=== PATIENT | female | born 1940 | race Caucasian/White ===

== ENCOUNTER 2016-09-18 20:58 | Emergency (ER) | payer MEDICARE, SELFPAY ==
[2016-09-18] MEDS ORDERED: Reglan 10 MG/2 ML IV ONE (21:01)
[2016-09-18] MEDS ORDERED: BENADRYL 50 MG/ML IV ONE (21:01)
[2016-09-18] MEDS ORDERED: Hydromorphone 1 mg/ml Ampule IV ONE ×2 (21:11→22:23)
[2016-09-18] MEDS ORDERED: Sodium Chloride 0.9% 1000 ML 1,000 ML IV SCH (21:15)
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
[2016-09-18 21:20] LABS: Lactic Acid 1.4 (0.4-2.0); VBG BASE EXCESS 3.4 (-2.0-2.0); VBG CARBOXYHEMOGLOBIN 1.3 % T HGB (0.0-6.9); VBG HCO3- 31.2 meq/L (22-28); VBG HEMOGLOBIN 12.6; VBG O2 SATURATION 44.3 (95-100); VBG POTASSIUM 3.9 (3.5-5.1); VBG pH 7.31 (7.32-7.42)
[2016-09-18 21:22] LABS: BASOPHIL % 0.7 % (0.0-0.4); Eosinophil % 1.8 % (0.00-5.0); Granulocytes % 47.2 % (36.0-66.0); Lymphocytes % 38.8 % (24.0-44.0); Mean Cell Volume 92.1 fl (78-100); Mean Corpuscular Hemoglobin 29.9 pg (26-32); Mean Platelet Volume 9.1 fl (6-9.5); Monocytes % 11.5 % (0.0-12.0); Platelet Count 220 K/mm3 (150-450); Red Blood Count 4.31 M/mm3 (4.1-5.4); Red Cell Distribution Width 14.2 % (11.5-14.0); White Blood Count 4.4 K/mm3 (4.0-10.5)
[2016-09-18] MEDS ORDERED: Reglan 10 MG/2 ML ONE (21:24)
[2016-09-18] MEDS ORDERED: Hydromorphone 1 mg/ml Ampule ONE ×2 (21:25→22:25)
[2016-09-18] MEDS ORDERED: Sodium Chloride 0.9% 1000 ML 1,000 ML ONE (21:25)
[2016-09-18] MEDS ORDERED: BENADRYL 50 MG/ML ONE (21:25)
[2016-09-18 21:44] LABS: ALBUMIN 3.3 g/dL (3.4-5.0); ALKALINE PHOSPHATASE 64 U/L (46-116); ANION GAP 12.6 MEQ/L (5-15); BILIRUBIN,TOTAL 0.1 mg/dL (0.2-1.0); BLOOD UREA NITROGEN 19 mg/dL (9-20); CHLORIDE 104 mEq/L (98-107); Carbon Dioxide 28.5 mEq/L (21-32); Glucose 112 MG/DL (70-110); Potassium 3.6 mEq/L (3.5-5.1); SGOT/AST 16 U/L (15-37); SGPT/ALT 9 U/L (12-78); SODIUM 142 mEq/L (136-145); Total Protein 7.8 gm/dL (6.4-8.2)
[2016-09-18 22:03] LABS: Erythrocyte Sedimentation Rate 43 mm/hr (0-20)
[2016-09-18] MEDS ORDERED: XYLOCAINE 1% HCL 20 ML MDV IJ ONE (22:23)
[2016-09-18] MEDS ORDERED: XYLOCAINE 1% HCL 20 ML MDV ONE (22:25)
[2016-09-18] MEDS ORDERED: Celestone Soluspan 6MG/ML IM ONE (23:36)
[2016-09-18] MEDS ORDERED: Celestone Soluspan 6MG/ML ONE (23:39)
[2016-09-19 00:23] VITALS: BP 128/68; PULSE 60; O2SAT 95
--- NOTE | 2016-09-19 06:46 | XRAY ---
Indication: Right-sided headache radiating to right side of body. No known injury. Multiple contiguous axial images obtained through the head without contrast. Comparison: April 09, 2012. Again age-appropriate global atrophy and minimal periventricular degenerative micro-ischemia. New finding for remote appearing lacunar infarct in the left thalamus. No acute intracranial hemorrhage, abnormal extra-axial fluid collection, or mass effect. Fourth ventricle is midline without hydrocephalus. Bony calvarium intact. Visualized paranasal sinuses and mastoid air cells are pneumatized and clear. Impression: Nonacute senile brain. New finding for remote left thalamic lacunar infarct. Comment: Preliminary interpretation was made by [facility]. No critical discrepancy. CTDI 66.59
--- NOTE | 2016-09-19 06:50 | XRAY ---
Indication: Right-sided headache radiating to right side of body. No known injury. Multiple contiguous axial images obtained through the cervical spine. Sagittal and coronal reformatted images obtained. Comparison: None. Axial images negative for acute fracture, suspicious bony lesions, or spinal canal stenosis. Mild atlantoaxial degenerative changes. C3-C5 and C7-T1 anterior endplate spurring. At the C3-C4 and C5-C6 levels, there is broadbase disc bulge. Sagittal and coronal reformatted images demonstrates normal alignment. Disc spaces maintained. No acute compression fracture, subluxation, or jump facet. Normal-appearing craniocervical junction. Visualized noncontrasted soft tissues including base of the brain and lung apices are unremarkable. Impression: No acute fracture/subluxation. Incidental multilevel degenerative changes that can be better evaluated with MRI if clinically warranted. Comment: Preliminary interpretation was made by [facility]. No critical discrepancy. CTDI 120.49
== END 2016-09-19 00:25 | disposition home or self-care (01) ==
LOC: ED 20:58
DX: G44.59 Other complicated headache syndrome (principal); M54.81 Occipital neuralgia; M50.20 Other cervical disc displacement, unspecified cervical region; I10 Essential (primary) hypertension; Z86.73 Personal history of transient ischemic attack (TIA), and cerebral infarction without residual deficits; J44.9 Chronic obstructive pulmonary disease, unspecified; Z79.899 Other long term (current) drug therapy
CPT/HCPCS: 36000; 36415; 70450; 72125; 80053; 82805; 83605; 85025; 85652; 93041; 96360; 96361; 96372; 96374; 96375; 96376; 99284; J0702; J1170; J1200

== ENCOUNTER 2017-01-04 12:07 | Emergency (ER) | payer MEDICARE, SELFPAY ==
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
[2017-01-04 12:45] LABS: COMPLETE URINE MICROSCOPIC? YES; Collection Type CLEAN CATCH
[2017-01-04 12:54] LABS: BASOPHIL % 0.5 % (0.0-0.4); Eosinophil % 1.7 % (0.00-5.0); Granulocytes % 53.9 % (36.0-66.0); Lymphocytes % 29.4 % (24.0-44.0); Mean Cell Volume 95.1 fl (78-100); Mean Corpuscular Hemoglobin 30.2 pg (26-32); Mean Platelet Volume 8.8 fl (6-9.5); Monocytes % 14.5 % (0.0-12.0); Platelet Count 195 K/mm3 (150-450); Red Blood Count 3.67 M/mm3 (4.1-5.4); Red Cell Distribution Width 13.6 % (11.5-14.0); White Blood Count 4.2 K/mm3 (4.0-10.5)
[2017-01-04 13:10] LABS: ADD URINE CULTURE? YES (NO); Bacteria MODERATE /HPF (NEGATIVE); Epithelial Cells MODERATE /HPF (FEW); WBC 50-100 /HPF (0-5)
[2017-01-04 13:53] LABS: ALBUMIN 3.1 g/dL (3.4-5.0); BILIRUBIN,TOTAL 0.3 mg/dL (0.2-1.0); Potassium 3.6 mEq/L (3.5-5.1); Total Protein 7.1 gm/dL (6.4-8.2)
[2017-01-04 14:25] VITALS: BP 155/82; PULSE 65; O2SAT 96
== END 2017-01-04 14:23 | disposition home or self-care (01) ==
LOC: ED 12:07
DX: N39.0 Urinary tract infection, site not specified (principal); R41.0 Disorientation, unspecified; Z87.440 Personal history of urinary (tract) infections
CPT/HCPCS: 36415; 80053; 81000; 85025; 87077; 87086; 87186; 99283; 99284

== ENCOUNTER 2017-02-18 14:36 | Emergency (ER) | payer MEDICARE, SELFPAY ==
[2017-02-18] MEDS ORDERED: TORAdol 30 mg Injection IM ONE (15:08)
[2017-02-18 15:09] VITALS: O2SAT 96
[2017-02-18] MEDS ORDERED: TORAdol 30 mg Injection ONE (15:12)
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
[2017-02-18 15:59] VITALS: BP 130/82; PULSE 70
--- NOTE | 2017-02-18 16:09 | XRAY ---
Indication: Pain. No known injury. Comparison: None 2 views of the right hip intact with a few pelvic phleboliths and minimal spurring of the greater trochanter. No other bony, articular, or soft tissue abnormalities.
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
== END 2017-02-18 16:45 | disposition home or self-care (01) ==
LOC: ED 14:36
DX: M79.604 Pain in right leg (principal); G89.29 Other chronic pain
CPT/HCPCS: 73502; 93971; 96372; 99284; J1885

== ENCOUNTER 2017-03-05 18:50 | Emergency (ER) | payer MEDICARE, SELFPAY ==
[2017-03-05] MEDS ORDERED: Sodium Chloride 0.9% 1000 ML 1,000 ML IV STA (19:16)
[2017-03-05] MEDS ORDERED: Sodium Chloride 0.9% 1000 ML 1,000 ML ONE (19:20)
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
[2017-03-05 19:34] LABS: BASOPHIL % 0.3 % (0.0-0.4); Eosinophil % 0.9 % (0.00-5.0); Granulocytes % 59.9 % (36.0-66.0); Lymphocytes % 25.9 % (24.0-44.0); Mean Cell Volume 90.4 fl (78-100); Mean Corpuscular Hemoglobin 29.4 pg (26-32); Mean Platelet Volume 8.7 fl (6-9.5); Platelet Count 255 K/mm3 (150-450); Red Blood Count 4.07 M/mm3 (4.1-5.4); Red Cell Distribution Width 13.5 % (11.5-14.0); White Blood Count 6.4 K/mm3 (4.0-10.5)
[2017-03-05 19:50] LABS: ALBUMIN 3.4 g/dL (3.4-5.0); ALKALINE PHOSPHATASE 48 U/L (46-116); ANION GAP 9.4 MEQ/L (5-15); BLOOD UREA NITROGEN 18 mg/dL (9-20); CHLORIDE 98 mEq/L (98-107); Carbon Dioxide 29.1 mEq/L (21-32); Glucose 113 MG/DL (70-110); Potassium 3.8 mEq/L (3.5-5.1); SGOT/AST 27 U/L (15-37); SGPT/ALT 30 U/L (12-78); SODIUM 133 mEq/L (136-145); Total Protein 7.7 gm/dL (6.4-8.2)
[2017-03-05 20:01] LABS: ADD URINE CULTURE? YES (NO); Bacteria MANY /HPF (NEGATIVE); Bilirubin NEGATIVE (NEGATIVE); Blood 50 Ery/ul (0-5); COMPLETE URINE MICROSCOPIC? YES; Collection Type VOID; Epithelial Cells MODERATE /HPF (FEW); Glucose NEGATIVE (NEGATIVE); Leukocyte Esterase 1+ (NEGATIVE); Mucus SLIGHT /HPF (NEGATIVE)
[2017-03-05] MEDS ORDERED: ROCEPHIN 1 Gm-D5w 50 ml Bag** 1 G/50 ML IVPB IV STA (20:04)
[2017-03-05] MEDS ORDERED: ROCEPHIN 1 Gm-D5w 50 ml Bag** 1 G/50 ML IVPB IV ONE (20:07)
[2017-03-05 20:47] VITALS: BP 151/88; PULSE 59; O2SAT 97
--- NOTE | 2017-03-05 22:14 | XRAY ---
Indication: Confusion. No recent injury. Multiple contiguous axial images obtained through the head without contrast. Comparison: September 18, 2016. Again age-appropriate global atrophy and minimal periventricular degenerative micro-ischemia. No acute intracranial hemorrhage, abnormal extra-axial fluid collection, or mass effect. Fourth ventricle is midline without hydrocephalus. Bony calvarium intact. Visualized paranasal sinuses and mastoid air cells are pneumatized and clear. Impression: Stable nonacute senile brain. CTDI 67.99
== END 2017-03-05 20:52 | disposition home or self-care (01) ==
LOC: ED 18:50
DX: N39.0 Urinary tract infection, site not specified (principal); T40.601A Poisoning by unspecified narcotics, accidental (unintentional), initial encounter; R47.81 Slurred speech; R41.0 Disorientation, unspecified; Z79.891 Long term (current) use of opiate analgesic
CPT/HCPCS: 36415; 70450; 80053; 80307; 81000; 85025; 87086; 96360; 96365; 99284; J0696

== ENCOUNTER 2017-08-03 13:29 | Observation (INO) | payer MEDICARE ==
[2017-08-03] MEDS ORDERED: Ecotrin 325 MG ONE (13:57)
[2017-08-03] MEDS ORDERED: BABY ASPIRIN 81 MG CHEW PO ONE (14:30)
[2017-08-03 14:54] LABS: Hematocrit 38.9 % (35-47); Hemoglobin 12.3 gm/dl (12.0-16.0); Mean Cell Volume 92.8 fl (78-100); Mean Corpuscular Hemoglobin 29.4 pg (26-32); Mean Corpuscular Hgb Concent. 31.6 g/dl (32-36); Mean Platelet Volume 9.1 fl (6-9.5); Platelet Count 207 K/mm3 (150-450); Red Blood Count 4.19 M/mm3 (4.1-5.4); Red Cell Distribution Width 13.4 % (11.5-14.0); White Blood Count 3.2 K/mm3 (4.0-10.5)
--- NOTE | 2017-08-03 15:06 | XRAY ---
Indication: Chest pain. Comparison: April 15, 2015. PA/lateral chest again hyperinflated and clear. Heart is not enlarged. Vascularity normal. Bony thorax intact again with mild osteopenia, degenerative changes, and scoliosis. Impression: Nonacute hyperinflated chest with chronic features.
[2017-08-03 15:12] LABS: INR 1.06 (0.8-3.0)
[2017-08-03 15:15] LABS: PTT 29.8 SECONDS (25.3-37.0)
[2017-08-03 15:26] LABS: ALBUMIN 3.5 g/dL (3.4-5.0); ALKALINE PHOSPHATASE 45 U/L (46-116); ANION GAP 12.1 MEQ/L (5-15); BLOOD UREA NITROGEN 10 mg/dL (9-20); CHLORIDE 105 mEq/L (98-107); Calcium 8.9 mg/dL (8.5-10.1); Carbon Dioxide 27.1 mEq/L (21-32); Creatinine 1 0.84 mg/dl (0.55-1.30); EST GLOMERULAR FILTRATION RATE > 60 ML/MIN; Glucose 88 MG/DL (70-110); NT PRO BNP 172 pg/ml (0-450); Potassium 4.1 mEq/L (3.5-5.1); SGOT/AST 20 U/L (15-37); SGPT/ALT 13 U/L (12-78); SODIUM 140 mEq/L (136-145); Total Protein 7.8 gm/dL (6.4-8.2)
--- NOTE | 2017-08-03 16:43 | XRAY ---
Indication: Bilateral calf claudication. Chest pain. Two-dimensional sonogram and color Doppler imaging of the major arteries of the left and right leg was performed. Comparison: None Visualized common femoral, deep femoral, superficial femoral, popliteal, posterior tibial, and dorsal pedal arteries of the left and right leg are negative for critical stenosis or obstruction. Arterial waveforms are multiphasic bilaterally. Right arm brachial pressure is 158. Right ankle pressure is 168. Ankle brachial index is 1.05, normal. Left arm brachial pressures 160. Left ankle pressure is 180. Ankle brachial index is 1.1, normal. Impression: Left and right leg arterial Doppler sonogram is negative for critical stenosis or obstruction. Left and right ankle branchial indices are also normal.
[2017-08-03] MEDS ORDERED: TYLENOL 325 MG PO PRN (18:34)
[2017-08-03] MEDS ORDERED: Cymbalta 30 MG Capsule PO SCH (22:00)
[2017-08-03] MEDS ORDERED: Abilify 10 MG PO SCH (22:00)
[2017-08-03] MEDS: Lopressor 50 MG PO SCH (22:22)
[2017-08-04 07:12] VITALS: BP 148/66; PULSE 55; O2SAT 95
[2017-08-04] MEDS: Lopressor 50 MG PO SCH (08:04)
--- NOTE | 2017-08-04 09:08 | PCM.DCORD ---
- Discharge Discharge Date: 08/04/17 Disposition: Home, Self-Care Condition: Stable Prescriptions: New Aripiprazole [Abilify] 5 mg PO DAILY #30 tablet Duloxetine HCl 30 mg [Cymbalta 30 MG Capsule] 30 mg PO HS #30 cap Aspirin EC 81 mg [Ecotrin 81 mg] 81 mg PO DAILY #30 tablet.ec Metoprolol Tartrate 50 mg [Lopressor 50 MG] 50 mg PO BID #60 tablet Follow up with: FRANCINE MAGANA [Primary Care Provider] - 1 Week
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
[2017-08-04] MEDS ORDERED: ECOTRIN 81 MG PO SCH (10:00)
--- NOTE | 2017-08-15 08:03 | ECHO ---
Transthoracic echocardiographic examination and color Doppler was done on 08/03/2017. INDICATION: Chest pain. IMPRESSION: 1) NO REGIONAL WALL MOTION ABNORMALITY. ESTIMATED GLOBAL LEFT VENTRICULAR EJECTION FRACTION OF AROUND 60%. 2) TRACE MITRAL REGURGITATION. 3) MILD TRICUSPID REGURGITATION. RIGHT VENTRICULAR SYSTOLIC PRESSURE OF 26 MM OF MERCURY. 4) LEFT ATRIAL ENLARGMENT. 5) LEFT VENTRICULAR HYPERTROPHY. 6) LEFT VENTRICULAR DIASTOLIC DYSFUNCTION. The left ventricle is visualized and demonstrated adequate motion of all the segments. Estimated global left ventricular ejection fraction around 60%. There is mild left ventricular hypertrophy. The mitral valve is seen and this opens adequately. There is mild mitral regurgitation. Left atrium is mildly enlarged. Tissue Doppler study of the lateral mitral annulus suggestive of left ventricular diastolic dysfunction. The aortic valve opens adequately. The right side chambers are normal. There is mild tricuspid regurgitation. The right ventricular systolic pressure of 26 mm of Mercury.
== END 2017-08-04 09:43 | disposition home or self-care (01) ==
LOC: MED SURG 13:39
PROVIDERS: ADMIT Family Medicine; ATTEND Family Medicine
DX: R07.9 Chest pain, unspecified (principal); R00.2 Palpitations; T33.821A Superficial frostbite of right foot, initial encounter; T33.822A Superficial frostbite of left foot, initial encounter; T69.9XXA Effect of reduced temperature, unspecified, initial encounter; X31.XXXA Exposure to excessive natural cold, initial encounter; M79.662 Pain in left lower leg; M79.661 Pain in right lower leg; Y93.K9 Activity, other involving animal care; F32.2 Major depressive disorder, single episode, severe without psychotic features; I10 Essential (primary) hypertension; F41.9 Anxiety disorder, unspecified; J44.9 Chronic obstructive pulmonary disease, unspecified; Z86.73 Personal history of transient ischemic attack (TIA), and cerebral infarction without residual deficits; M19.90 Unspecified osteoarthritis, unspecified site; M81.0 Age-related osteoporosis without current pathological fracture; M48.00 Spinal stenosis, site unspecified
CPT/HCPCS: 36415; 71046; 80053; 83880; 84484; 85027; 85610; 85730; 93005; 93268; 93306; 93925; G0378; A9270-GY

== ENCOUNTER 2017-08-19 19:04 | Emergency (ER) | payer MEDICARE ==
[2017-08-19] MEDS ORDERED: Zofran 4 MG/2 ML VIAL IV ONE ×2 (19:25→20:47)
[2017-08-19] MEDS ORDERED: MORPHINE SULFATE 4 MG INJ IV ONE (19:25)
[2017-08-19] MEDS ORDERED: Zofran 4 MG/2 ML VIAL ONE ×2 (19:28→22:17)
[2017-08-19] MEDS ORDERED: MORPHINE SULFATE 4 MG INJ ONE (19:28)
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
[2017-08-19 19:54] LABS: BASOPHIL % 0.5 % (0.0-0.4); Basophil (Absolute #) 0.02 (0-0.4); Eosinophil % 1.2 % (0.00-5.0); Eosinophil (Absolute #) 0.05 (0-0.5); Granulocytes % 55.2 % (36.0-66.0); Hematocrit 38.8 % (35-47); Hemoglobin 12.2 gm/dl (12.0-16.0); Lymphocyte (Absolute #) 1.32 (1.0-4.6); Lymphocytes % 30.4 % (24.0-44.0); Mean Cell Volume 91.3 fl (78-100); Mean Corpuscular Hemoglobin 28.7 pg (26-32); Mean Corpuscular Hgb Concent. 31.4 g/dl (32-36); Mean Platelet Volume 9.4 fl (6-9.5); Monocyte (Absolute #) 0.55 (0.0-1.3); Monocytes % 12.7 % (0.0-12.0); Platelet Count 198 K/mm3 (150-450); Red Blood Count 4.25 M/mm3 (4.1-5.4); Red Cell Distribution Width 13.5 % (11.5-14.0); White Blood Count 4.3 K/mm3 (4.0-10.5)
[2017-08-19 20:12] LABS: INR 1.07 (0.8-3.0)
[2017-08-19 20:15] LABS: PTT 28.7 SECONDS (25.3-37.0)
[2017-08-19 20:23] LABS: D-DIMER QUANTITATION 1273.64 ng/mL (0-500)
[2017-08-19 20:27] LABS: ALBUMIN 3.6 g/dL (3.4-5.0); ALKALINE PHOSPHATASE 48 U/L (46-116); ANION GAP 9.3 MEQ/L (5-15); BLOOD UREA NITROGEN 15 mg/dL (9-20); CHLORIDE 102 mEq/L (98-107); CK-Creatinine Phosphokinase 94 U/L (26-192); Carbon Dioxide 30.4 mEq/L (21-32); Creatinine 1 0.92 mg/dl (0.55-1.30); EST GLOMERULAR FILTRATION RATE > 60 ML/MIN; Glucose 109 MG/DL (70-110); NT PRO BNP 161 pg/ml (0-450); Potassium 4.2 mEq/L (3.5-5.1); SGOT/AST 19 U/L (15-37); SGPT/ALT 15 U/L (12-78); SODIUM 138 mEq/L (136-145); Total Protein 7.8 gm/dL (6.4-8.2)
[2017-08-20 00:03] VITALS: O2SAT 98
[2017-08-20 00:11] VITALS: BP 111/67; PULSE 80
--- NOTE | 2017-08-20 09:38 | XRAY ---
Indication: Chest pain. Elevated d-dimer. Multiple contiguous axial images obtained through the chest using 80 cc Isovue-370 contrast and PE protocol. Comparison: April 06, 2014. There is satisfactory opacification of the pulmonary arteries to include the lobar and segmental branches. Again no filling defect or pulmonary embolus. Heart is not enlarged. Aorta minimally arteriosclerotic without aneurysm/dissection. No pathologic mediastinal/hilar lymphadenopathy. Examination of the lung parenchyma again demonstrates minimal bilateral fibrosis/scarring. No suspicious pulmonary mass, infiltrate, or effusion. Bony thorax again demonstrates mild degenerative osteophytes throughout the spine and old left rib fracture deformities. CT abdomen reported separately. Impression: Again negative for pulmonary embolus. No new/acute cardiopulmonary abnormalities. Comment: Preliminary interpretation was made by [facility]. No discrepancy. CTDI 23.10
--- NOTE | 2017-08-20 09:42 | XRAY ---
Indication: Abdominal pain. Possible abdominal aneurysm. Multiple contiguous axial images obtained through the abdomen and pelvis using 80 cc of Isovue-370 contrast only. Comparison: November 04, 2014. CT chest reported separately. There remains mild aortoiliac calcifications without AAA. No pathologic retroperitoneal lymphadenopathy. Noncontrasted stomach and bowel loops appear nonobstructed. There is now mild diffuse scattered colonic fecal debris throughout. Stable sigmoid diverticulosis without diverticulitis. Again previous cholecystectomy and hysterectomy. No free fluid/air. The remaining liver, pancreas, spleen, adrenal glands, kidneys, ureters, and bladder appear unremarkable. Osseous structures intact again with mild diffuse degenerative spondylosis. Impression: 1. Negative AAA or dissection. 2. Fecal stasis without obstruction. 3. Stable sigmoid diverticulosis. 4. Remaining CT abdomen/pelvis with contrast exam is negative. Comment: Preliminary interpretation was made by [facility]. No discrepancy. CTDI 22.77
--- NOTE | 2017-08-20 09:42 | XRAY ---
Indication: Chest pain. Comparison: August 03, 2017. 2 views of the chest remains hyperinflated and clear. Heart and mediastinal structures within normal limits. No new/acute findings.
== END 2017-08-20 00:21 | disposition home or self-care (01) ==
LOC: ED 19:04
DX: I75.023 Atheroembolism of bilateral lower extremities (principal); M79.672 Pain in left foot; M79.671 Pain in right foot; R07.9 Chest pain, unspecified; R06.02 Shortness of breath; R42 Dizziness and giddiness
CPT/HCPCS: 36000; 36415; 71046; 71260; 74177; 80053; 82550; 83880; 84484; 85025; 85379; 85610; 85652; 85730; 86140; 87040; 93005; 93041; 96360; 96374; 99283; J2270; J2405

== ENCOUNTER 2017-09-28 19:11 | Emergency (ER) | payer MEDICARE ==
[2017-09-28] MEDS ORDERED: BABY ASPIRIN 81 MG CHEW PO ONE (19:36)
[2017-09-28] MEDS ORDERED: Valium 5 MG PO ONE (19:38)
[2017-09-28] MEDS ORDERED: Sodium Chloride 0.9% 1000 ML 1,000 ML IV SCH (19:45)
[2017-09-28] MEDS ORDERED: BABY ASPIRIN 81 MG CHEW ONE (19:46)
[2017-09-28] MEDS ORDERED: Sodium Chloride 0.9% 1000 ML 1,000 ML ONE (19:46)
[2017-09-28] MEDS ORDERED: Valium 5 MG ONE (19:46)
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
[2017-09-28 20:08] LABS: BASOPHIL % 0.4 % (0.0-0.4); Basophil (Absolute #) 0.02 (0-0.4); Eosinophil % 1.7 % (0.00-5.0); Eosinophil (Absolute #) 0.08 (0-0.5); Granulocyte Absolute (ANC) 2.09 (1.4-6.9); Granulocytes % 45.3 % (36.0-66.0); Hematocrit 38.7 % (35-47); Hemoglobin 12.4 gm/dl (12.0-16.0); Lymphocyte (Absolute #) 1.81 (1.0-4.6); Lymphocytes % 39.2 % (24.0-44.0); Mean Cell Volume 91.1 fl (78-100); Mean Corpuscular Hemoglobin 29.2 pg (26-32); Mean Platelet Volume 9.8 fl (6-9.5); Monocyte (Absolute #) 0.62 (0.0-1.3); Monocytes % 13.4 % (0.0-12.0); Platelet Count 233 K/mm3 (150-450); Red Blood Count 4.25 M/mm3 (4.1-5.4); Red Cell Distribution Width 13.9 % (11.5-14.0); White Blood Count 4.6 K/mm3 (4.0-10.5)
[2017-09-28 20:31] LABS: ALBUMIN 4.1 g/dl (3.5-5.0); ALKALINE PHOSPHATASE 52 U/L (38-126); ANION GAP 15.3 MEQ/L (5-15); BLOOD UREA NITROGEN 16 mg/dl (7-17); CHLORIDE 105 mEq/L (98-107); Calcium 9.2 mg/dL (8.4-10.2); Carbon Dioxide 24 mmol/L (22-30); Creatinine 1 0.72 mg/dl (0.52-1.04); Glucose 107 mg/dL (74-106); Potassium 4.3 mmol/L (3.5-5.1); SGOT/AST 21 U/L (14-36); SGPT/ALT 10 U/L (0-35); SODIUM 141 mmol/L (137-145); Total Protein 7.9 mg/dl (6.3-8.2)
[2017-09-28 20:42] LABS: Appearance CLEAR (CLEAR); Bilirubin NEGATIVE (NEGATIVE); Blood NEGATIVE Ery/ul (0-5); Glucose NEGATIVE (NEGATIVE); Ketones NEGATIVE (NEGATIVE); Leukocyte Esterase 2+ (NEGATIVE); Nitrite NEGATIVE (NEGATIVE); Protein,Urine Dip NEGATIVE (Negative); Urobilinogen NORMAL mg/dL (0-1)
[2017-09-28 20:43] LABS: Bacteria FEW /HPF (NEGATIVE); Epithelial Cells FEW /HPF (FEW)
[2017-09-28] MEDS ORDERED: Macrobid 100MG Capsule PO ONE (20:46)
[2017-09-28] MEDS ORDERED: Macrobid 100MG Capsule ONE ×2 (20:56→20:59)
[2017-09-28 21:59] VITALS: O2SAT 100
[2017-09-28 22:35] VITALS: BP 134/65; PULSE 42
--- NOTE | 2017-09-29 08:37 | XRAY ---
Indication: Chest pain. Comparison: September 08, 2017. Portable chest remains clear with chronic left costophrenic angle blunting. Heart and mediastinal structures within normal limits. Bony thorax intact again with mild degenerative changes. Impression: Stable nonacute chest with chronic features.
== END 2017-09-28 22:40 | disposition short-term general hospital (02) ==
LOC: ED 19:11
DX: R07.9 Chest pain, unspecified (principal); R00.1 Bradycardia, unspecified; J44.9 Chronic obstructive pulmonary disease, unspecified; I10 Essential (primary) hypertension; M19.90 Unspecified osteoarthritis, unspecified site; R79.89 Other specified abnormal findings of blood chemistry; N39.0 Urinary tract infection, site not specified; Z86.73 Personal history of transient ischemic attack (TIA), and cerebral infarction without residual deficits; M81.0 Age-related osteoporosis without current pathological fracture; F41.8 Other specified anxiety disorders
CPT/HCPCS: 36000; 36415; 71045; 80053; 81000; 83735; 84484; 85025; 87086; 93005; 96360; 96361; 99285; A9270-GY

== ENCOUNTER 2017-10-05 17:34 | Observation (INO) | payer MEDICARE ==
[2017-10-05] MEDS ORDERED: PROTONIX 40 MG IV IV ONE ×2 (18:21→19:07)
[2017-10-05] MEDS ORDERED: Zofran 4 MG/2 ML VIAL IV ONE (18:21)
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
[2017-10-05 19:07] LABS: BASOPHIL % 0.3 % (0.0-0.4); Basophil (Absolute #) 0.01 (0-0.4); Eosinophil % 1.2 % (0.00-5.0); Eosinophil (Absolute #) 0.04 (0-0.5); Granulocyte Absolute (ANC) 1.86 (1.4-6.9); Granulocytes % 54.5 % (36.0-66.0); Hemoglobin 12.6 gm/dl (12.0-16.0); Lymphocyte (Absolute #) 0.96 (1.0-4.6); Lymphocytes % 28.2 % (24.0-44.0); Mean Cell Volume 90.7 fl (78-100); Mean Corpuscular Hemoglobin 29.3 pg (26-32); Mean Corpuscular Hgb Concent. 32.3 g/dl (32-36); Mean Platelet Volume 9.2 fl (6-9.5); Monocyte (Absolute #) 0.54 (0.0-1.3); Monocytes % 15.8 % (0.0-12.0); Platelet Count 188 K/mm3 (150-450); Red Cell Distribution Width 14.1 % (11.5-14.0); White Blood Count 3.4 K/mm3 (4.0-10.5)
[2017-10-05] MEDS ORDERED: Sodium Chloride 0.9% 1000 ML 1,000 ML ONE (19:07)
[2017-10-05] MEDS ORDERED: Zofran 4 MG/2 ML VIAL ONE (19:07)
[2017-10-05 19:24] LABS: ALBUMIN 4.1 g/dL (3.5-5.0); ALKALINE PHOSPHATASE 54 U/L (38-126); AMYLASE 201 U/L (30-110); ANION GAP 13.7 MEQ/L (5-15); BLOOD UREA NITROGEN 19 mg/dL (7-17); CHLORIDE 102 mmol/L (98-107); Calcium 9.4 mg/dL (8.4-10.2); Carbon Dioxide 27 mmol/L (22-30); Glucose 118 mg/dL (74-106); Potassium 4.4 mmol/L (3.5-5.1); SGOT/AST 20 U/L (14-36); SGPT/ALT 10 U/L (0-35); SODIUM 138 mmol/L (137-145); Total Protein 7.9 g/dL (6.3-8.2)
[2017-10-05 21:09] LABS: Appearance HAZY (CLEAR); Bilirubin NEGATIVE (NEGATIVE); Blood TRACE NON-HEM Ery/ul (0-5); Glucose NEGATIVE (NEGATIVE); Ketones NEGATIVE (NEGATIVE); Leukocyte Esterase TRACE (NEGATIVE); Mucus MODERATE /HPF (NEGATIVE); Nitrite NEGATIVE (NEGATIVE); Protein,Urine Dip NEGATIVE (Negative); Urobilinogen NORMAL mg/dL (0-1)
[2017-10-05 21:10] LABS: Bacteria MODERATE /HPF (NEGATIVE); Epithelial Cells MODERATE /HPF (FEW)
[2017-10-05] MEDS ORDERED: MORPHINE SULFATE 4 MG INJ IV PRN (21:27)
[2017-10-05] MEDS ORDERED: Zofran 4 MG/2 ML VIAL IV PRN (21:27)
[2017-10-05] MEDS ORDERED: Sodium Chloride 0.9% 1000 ML 1,000 ML IV SCH (21:30)
[2017-10-06 04:33] VITALS: O2SAT 95
[2017-10-06 05:40] LABS: BASOPHIL % 0.3 % (0.0-0.4); Basophil (Absolute #) 0.01 (0-0.4); Eosinophil % 2.1 % (0.00-5.0); Eosinophil (Absolute #) 0.07 (0-0.5); Granulocyte Absolute (ANC) 1.58 (1.4-6.9); Granulocytes % 47.8 % (36.0-66.0); Hematocrit 33.4 % (35-47); Hemoglobin 10.6 gm/dl (12.0-16.0); Lymphocyte (Absolute #) 1.18 (1.0-4.6); Lymphocytes % 35.6 % (24.0-44.0); Mean Cell Volume 90.5 fl (78-100); Mean Corpuscular Hemoglobin 28.7 pg (26-32); Mean Corpuscular Hgb Concent. 31.7 g/dl (32-36); Mean Platelet Volume 9.1 fl (6-9.5); Monocyte (Absolute #) 0.47 (0.0-1.3); Monocytes % 14.2 % (0.0-12.0); Platelet Count 171 K/mm3 (150-450); Red Blood Count 3.69 M/mm3 (4.1-5.4); Red Cell Distribution Width 13.9 % (11.5-14.0); White Blood Count 3.3 K/mm3 (4.0-10.5)
[2017-10-06 06:03] LABS: ALBUMIN 3.2 g/dL (3.5-5.0); ALKALINE PHOSPHATASE 42 U/L (38-126); AMYLASE 89 U/L (30-110); ANION GAP 10.2 MEQ/L (5-15); BLOOD UREA NITROGEN 15 mg/dL (7-17); CHLORIDE 106 mmol/L (98-107); Calcium 8.8 mg/dL (8.4-10.2); Carbon Dioxide 26 mmol/L (22-30); Creatinine 1 0.66 mg/dL (0.52-1.04); Glucose 87 mg/dL (74-106); LIPASE 126 U/L (23-300); SGOT/AST 15 U/L (14-36); SGPT/ALT 8 U/L (0-35); SODIUM 138 mmol/L (137-145); Total Protein 6.4 g/dL (6.3-8.2)
[2017-10-06 07:19] VITALS: BP 129/59; PULSE 51
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
--- NOTE | 2017-10-06 08:00 | PCM.DCORD ---
- Discharge Discharge Date: 10/06/17 Disposition: Home, Self-Care Condition: Stable Prescriptions: New Clopidogrel Bisulfate 75 mg [PLAVIX 75 MG Tablet] 75 mg PO DAILY #30 tablet Continue Aspirin EC 81 mg [Ecotrin 81 mg] 81 mg PO DAILY #30 tablet.ec Metoprolol Tartrate 50 mg [Lopressor 50 MG] 50 mg PO BID #60 tablet Additional Instructions: if able to tolerate breakfast can d/c to home she is to continue her home meds she takes plavix and aspirin and metoprolol from Dr. Valdivia and I believe she takes a statin medication as well but she doesn't know what it is she is to continue this as well. Follow up with: FRANCINE MAGANA [Primary Care Provider] - 1 Week
--- NOTE | 2017-10-06 08:41 | XRAY ---
Indication: Vomiting. Multiple contiguous axial images obtained through the abdomen and pelvis without contrast as ordered. Comparison: August 25, 2017. Lung bases again demonstrates bilateral fibrosis/scarring. No infiltrate or effusion. Heart is not enlarged. Stable small hiatal hernia. Noncontrasted stomach and bowel loops appear nonobstructed. Stable sigmoid diverticulosis without diverticulitis. Again previous cholecystectomy and hysterectomy. No free fluid/air. Remaining liver, pancreas, spleen, adrenal glands, kidneys, ureters, and bladder appear unremarkable for noncontrast exam. There remains mild aortoiliac calcifications without AAA. Osseous structures intact again with mild multilevel degenerative spondylosis and old left lower rib fractures. Impression: 1. Stable hiatal hernia and sigmoid diverticulosis. 2. No new or acute intra-abdominal/pelvic abnormalities on this noncontrast exam. CT DI 22.57
--- NOTE | 2017-10-06 08:47 | XRAY ---
Indication: Abdomen pain, nausea, and vomiting. Comparison: Chest exam September 28, 2017. 2 views of the abdomen nonacute and nonobstructed with cholecystectomy clips. Solid organs unremarkable. Osseous structures intact with mild multilevel degenerative spondylosis. Single PA chest remains clear with chronic left costophrenic angle blunting and old left lower rib fractures. Heart is not enlarged. No new/acute findings. Impression: Negative abdomen. Stable nonacute one view chest with chronic feature.
[2017-10-06] MEDS ORDERED: PLAVIX 75 MG Tablet PO SCH (10:00)
[2017-10-06] MEDS ORDERED: ECOTRIN 81 MG PO SCH (10:00)
[2017-10-06] MEDS ORDERED: Lopressor 50 MG PO SCH (10:00)
== END 2017-10-06 10:37 | disposition home or self-care (01) ==
LOC: ED 17:34 → MED SURG 22:17
PROVIDERS: ADMIT Family Medicine; ATTEND Family Medicine
DX: R11.2 Nausea with vomiting, unspecified (principal); K52.9 Noninfective gastroenteritis and colitis, unspecified; K85.90 Acute pancreatitis without necrosis or infection, unspecified; D89.89 Other specified disorders involving the immune mechanism, not elsewhere classified; I25.10 Atherosclerotic heart disease of native coronary artery without angina pectoris; Z79.01 Long term (current) use of anticoagulants
CPT/HCPCS: 36000; 36415; 74022; 74176; 80053; 81000; 82150; 83605; 83690; 84484; 85025; 87077; 87086; 87186; 93005; 93268; 96360; 99285; G0378; J2405; A9270-GY

== ENCOUNTER 2017-10-28 18:35 | Emergency (ER) | payer MEDICARE ==
[2017-10-28 19:02] LABS: BASOPHIL % 0.2 % (0.0-0.4); Basophil (Absolute #) 0.01 (0-0.4); Eosinophil % 1.5 % (0.00-5.0); Eosinophil (Absolute #) 0.07 (0-0.5); Granulocyte Absolute (ANC) 2.65 (1.4-6.9); Granulocytes % 57.9 % (36.0-66.0); Hematocrit 37.7 % (35-47); Hemoglobin 12.4 gm/dl (12.0-16.0); Lymphocyte (Absolute #) 1.42 (1.0-4.6); Mean Cell Volume 91.3 fl (78-100); Mean Corpuscular Hgb Concent. 32.9 g/dl (32-36); Mean Platelet Volume 9.4 fl (6-9.5); Monocyte (Absolute #) 0.43 (0.0-1.3); Monocytes % 9.4 % (0.0-12.0); Platelet Count 181 K/mm3 (150-450); Red Blood Count 4.13 M/mm3 (4.1-5.4); Red Cell Distribution Width 14.5 % (11.5-14.0); White Blood Count 4.6 K/mm3 (4.0-10.5)
[2017-10-28] MEDS ORDERED: Sodium Chloride 0.9% 1000 ML 1,000 ML IV STA (19:13)
[2017-10-28] MEDS ORDERED: Sodium Chloride 0.9% 1000 ML 1,000 ML ONE (19:16)
[2017-10-28 19:19] LABS: INR 1.05 (0.8-3.0)
[2017-10-28 19:21] LABS: PTT 30.1 SECONDS (25.3-37.0)
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
[2017-10-28] MEDS ORDERED: PROVENTIL 2.5 MG/3 ML NEB IH ONE ×2 (19:23→20:11)
[2017-10-28] MEDS ORDERED: Hydromorphone 1 mg/ml Ampule IV ONE (19:24)
[2017-10-28] MEDS ORDERED: Zofran 4 MG/2 ML VIAL IV ONE (19:24)
[2017-10-28] MEDS ORDERED: Zofran 4 MG/2 ML VIAL ONE (19:26)
[2017-10-28] MEDS ORDERED: DILAUDID 2 MG INJECTION ONE (19:27)
[2017-10-28 19:28] LABS: ALKALINE PHOSPHATASE 49 U/L (38-126); ANION GAP 14.8 MEQ/L (5-15); BLOOD UREA NITROGEN 14 mg/dL (7-17); CHLORIDE 107 mmol/L (98-107); Calcium 9.1 mg/dL (8.4-10.2); Carbon Dioxide 25 mmol/L (22-30); Creatinine 1 0.73 mg/dL (0.52-1.04); Glucose 119 mg/dL (74-106); Potassium 3.6 mmol/L (3.5-5.1); SGOT/AST 16 U/L (14-36); SGPT/ALT 8 U/L (0-35); SODIUM 143 mmol/L (137-145); Total Protein 7.6 g/dL (6.3-8.2)
[2017-10-28 19:36] LABS: NT PRO BNP 266 pg/mL (0-1800)
[2017-10-28 19:39] LABS: D-DIMER QUANTITATION 1303.27 ng/mL (215-500)
--- NOTE | 2017-10-28 21:40 | XRAY ---
Indication: Short of breath. Comparison: October 05, 2017. Portable chest demonstrates stable minimal left base fibrosis/scarring. No focal infiltrate, consolidation, or large effusion. Heart is not enlarged for AP portable technique. Vascularity normal. Bony thorax intact again with mild degenerative changes. Impression: Stable nonacute chest with chronic features.
[2017-10-28 23:03] LABS: Appearance CLEAR (CLEAR); Bilirubin NEGATIVE (NEGATIVE); Blood NEGATIVE Ery/ul (0-5); Glucose NEGATIVE (NEGATIVE); Ketones NEGATIVE (NEGATIVE); Leukocyte Esterase NEGATIVE (NEGATIVE); Nitrite NEGATIVE (NEGATIVE); Protein,Urine Dip NEGATIVE (Negative); Specific Gravity 1.015 (1.005-1.025); Urobilinogen NORMAL mg/dL (0-1)
[2017-10-28 23:26] VITALS: BP 165/79; PULSE 73; O2SAT 99
--- NOTE | 2017-10-29 07:38 | XRAY ---
Indication: Chest pain. Elevated d-dimer. Multiple contiguous axial images obtained through the chest using 80 cc Isovue-370 contrast and PE protocol. Comparison: April 06, 2014. There is satisfactory opacification of the pulmonary arteries to include the lobar and segmental branches. Again no filling defect or pulmonary embolus. Heart is not enlarged. Aorta minimally arteriosclerotic without aneurysm/dissection. No pathologic mediastinal/hilar lymphadenopathy. Examination of the lung parenchyma again demonstrates minimal scattered bilateral fibrosis/scarring. No suspicious pulmonary mass, infiltrate, or effusion. Bony thorax again demonstrates mild degenerative osteophytes throughout the spine and old left rib fracture deformities. CT abdomen reported separately. Impression: Again negative for pulmonary embolus. No new/acute cardiopulmonary abnormalities. Comment: Preliminary interpretation was made by [facility]. No critical discrepancy. CTDI 23.09
--- NOTE | 2017-10-29 07:42 | XRAY ---
Indication: Vomiting. Multiple contiguous axial images obtained through the abdomen and pelvis without contrast as ordered. Comparison: August 25, 2017. CT chest reported separately. Noncontrasted stomach and bowel loops appear nonobstructed. There is now mild diffuse scattered colonic fecal debris throughout. Stable sigmoid diverticulosis without diverticulitis. Again previous cholecystectomy and hysterectomy. No free fluid/air. Remaining liver, pancreas, spleen, adrenal glands, kidneys, ureters, and bladder appear unremarkable for noncontrast exam. Stable mild aortoiliac calcifications without AAA. Osseous structures intact again with mild multilevel degenerative spondylosis and old left lower rib fractures. Impression: 1. Fecal stasis without obstruction. 2. Stable sigmoid diverticulosis. 3. No acute intra-abdominal/pelvic abnormalities on this noncontrast exam. Comment: Preliminary interpretation was made by [facility]. No critical discrepancy. CT DI 23.31
== END 2017-10-28 23:26 | disposition home or self-care (01) ==
LOC: ED 18:35
DX: R07.89 Other chest pain (principal); R11.10 Vomiting, unspecified; R10.10 Upper abdominal pain, unspecified; R06.02 Shortness of breath; Z79.899 Other long term (current) drug therapy; J44.9 Chronic obstructive pulmonary disease, unspecified; I10 Essential (primary) hypertension; F41.8 Other specified anxiety disorders; I71.2 Thoracic aortic aneurysm, without rupture
CPT/HCPCS: 36000; 36415; 71045; 71260; 74176; 80053; 81002; 82150; 83690; 83735; 83880; 84484; 85025; 85379; 85610; 85730; 93005; 93041; 94150; 94640; 96360; 96374; 96375; 99284; J1170; J2405; A9270-GY

== ENCOUNTER 2018-02-06 05:51 | Observation (INO) | payer MEDICARE ==
[2018-02-06] MEDS ORDERED: Zofran 4 MG/2 ML VIAL IV ONE (06:13)
[2018-02-06] MEDS ORDERED: Pepcid 20 MG VIAL IV ONE ×2 (06:13→06:21)
[2018-02-06] MEDS ORDERED: GI COCKTAIL 45 ML (Maalox/Lidocaine) PO ONE (06:15)
[2018-02-06] MEDS ORDERED: Zofran 4 MG/2 ML VIAL ONE (06:21)
[2018-02-06] MEDS ORDERED: XYLOCAINE HCl Viscous ONE (06:22)
[2018-02-06] MEDS ORDERED: MAALOX ES 30 ML UNIT DOSE ONE (06:22)
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
[2018-02-06 06:41] LABS: BASOPHIL % 0.3 % (0.0-0.4); Basophil (Absolute #) 0.01 (0-0.4); Eosinophil % 1.8 % (0.00-5.0); Eosinophil (Absolute #) 0.06 (0-0.5); Granulocyte Absolute (ANC) 1.55 (1.4-6.9); Granulocytes % 46.1 % (36.0-66.0); Hematocrit 35.2 % (35-47); Hemoglobin 11.3 gm/dl (12.0-16.0); Lymphocyte (Absolute #) 1.35 (1.0-4.6); Lymphocytes % 40.2 % (24.0-44.0); Mean Cell Volume 92.1 fl (78-100); Mean Corpuscular Hgb Concent. 32.1 g/dl (32-36); Mean Platelet Volume 9.1 fl (6-9.5); Monocyte (Absolute #) 0.39 (0.0-1.3); Monocytes % 11.6 % (0.0-12.0); Platelet Count 184 K/mm3 (150-450); Red Blood Count 3.82 M/mm3 (4.1-5.4); Red Cell Distribution Width 14.4 % (11.5-14.0); White Blood Count 3.4 K/mm3 (4.0-10.5)
[2018-02-06 06:42] LABS: Mean Corpuscular Hemoglobin 29.5 pg (26-32)
[2018-02-06 06:57] LABS: ALBUMIN 3.8 g/dL (3.5-5.0); ALKALINE PHOSPHATASE 49 U/L (38-126); ANION GAP 10.6 MEQ/L (5-15); BLOOD UREA NITROGEN 15 mg/dL (7-17); CHLORIDE 109 mmol/L (98-107); CK-Creatinine Phosphokinase 96 U/L (30-135); Carbon Dioxide 26 mmol/L (22-30); Creatinine 1 0.83 mg/dL (0.52-1.04); Glucose 107 mg/dL (74-106); LIPASE 82 U/L (23-300); Potassium 3.9 mmol/L (3.5-5.1); SGOT/AST 15 U/L (14-36); SGPT/ALT 8 U/L (0-35); SODIUM 142 mmol/L (137-145); Total Protein 7.1 g/dL (6.3-8.2)
[2018-02-06 06:59] LABS: INR 1.03 (0.8-3.0)
[2018-02-06 07:02] LABS: PTT 29.9 SECONDS (25.3-37.0)
[2018-02-06 07:05] LABS: NT PRO BNP 128 pg/mL (0-1800)
[2018-02-06] MEDS ORDERED: Nitrostat 0.4 MG (ED) SL ONE (07:40)
--- NOTE | 2018-02-06 08:49 | XRAY ---
Indication: Chest pain. Comparison: October 28, 2017. Portable chest demonstrates stable blunting of left costophrenic angle. No focal infiltrate, consolidation, or large effusion. Heart is not enlarged. Bony thorax intact again with mild osteopenia, degenerative changes, and chronic left rib deformities. Impression: Stable nonacute chest with chronic features.
[2018-02-06] MEDS ORDERED: Zofran 4 MG/2 ML VIAL IV PRN (10:58)
[2018-02-06] MEDS ORDERED: MAALOX ES 30 ML UNIT DOSE PO PRN (10:58)
[2018-02-06] MEDS ORDERED: Senokot-S Tablet PO PRN (10:58)
[2018-02-06] MEDS ORDERED: MILK OF MAGNESIA 30 ML PO PRN (10:58)
[2018-02-06] MEDS ORDERED: TYLENOL 325 MG PO PRN (10:58)
[2018-02-06] MEDS ORDERED: Nitrostat 0.4 MG Tablet SL PRN (10:58)
[2018-02-06] MEDS ORDERED: Apresoline 25 MG TABLET PO ONE (11:45)
[2018-02-06 12:12] VITALS: O2SAT 97
[2018-02-06] MEDS ORDERED: PLAVIX 75 MG Tablet PO SCH (14:00)
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
[2018-02-06] MEDS ORDERED: Adalat CC 30 MG TABLET PO SCH (14:30)
[2018-02-06 16:13] VITALS: BP 133/63; PULSE 49
[2018-02-06] MEDS ORDERED: ZOCOR 20MG PO SCH (22:00)
[2018-02-07] MEDS ORDERED: LIPITOR 40MG PO SCH (10:00)
[2018-02-07] MEDS ORDERED: ECOTRIN 81 MG PO SCH (10:00)
[2018-02-07] MEDS ORDERED: Ecotrin 325 MG PO SCH (10:00)
== END 2018-02-06 17:00 | disposition home health service (06) ==
LOC: ED 05:51 → MED SURG 10:48
PROVIDERS: ADMIT Family Medicine; ATTEND Family Medicine
DX: R07.9 Chest pain, unspecified (principal); I73.00 Raynaud's syndrome without gangrene; I10 Essential (primary) hypertension; D89.89 Other specified disorders involving the immune mechanism, not elsewhere classified; I25.10 Atherosclerotic heart disease of native coronary artery without angina pectoris; M19.90 Unspecified osteoarthritis, unspecified site; M81.0 Age-related osteoporosis without current pathological fracture; F41.8 Other specified anxiety disorders; Z79.899 Other long term (current) drug therapy
CPT/HCPCS: 36000; 36415; 71045; 80053; 82550; 83690; 83880; 84484; 85025; 85610; 85652; 85730; 93005; 93041; 93268; 96374; 96375; 99285; J2405; A9270-GY; G0378

== ENCOUNTER 2018-05-02 08:30 | Emergency (ER) | payer MEDICARE ==
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
[2018-05-02] MEDS: BABY ASPIRIN 81 MG CHEW PO ONE (08:47)
[2018-05-02] MEDS ORDERED: BABY ASPIRIN 81 MG CHEW ONE (08:49)
--- NOTE | 2018-05-02 09:05 | XRAY ---
Indication: Chest pain and short of breath. Comparison: February 06, 2018. Portable chest demonstrates stable chronic blunting of the left costophrenic angle. Remaining heart and lungs normal. Bony thorax intact again with mild osteopenia, degenerative changes, mild levoscoliosis, and chronic left lower rib deformities. Impression: Stable nonacute chest with chronic features.
[2018-05-02 09:15] LABS: Basophil (Absolute #) 0 (0-0.4); Eosinophil % 1.2 % (0.00-5.0); Eosinophil (Absolute #) 0.07 (0-0.5); Granulocyte Absolute (ANC) 3.32 (1.4-6.9); Granulocytes % 58.1 % (36.0-66.0); Hematocrit 40.4 % (35-47); Hemoglobin 13.1 gm/dl (12.0-16.0); Lymphocyte (Absolute #) 1.55 (1.0-4.6); Lymphocytes % 27.1 % (24.0-44.0); Mean Cell Volume 93.3 fl (78-100); Mean Corpuscular Hemoglobin 30.3 pg (26-32); Mean Corpuscular Hgb Concent. 32.4 g/dl (32-36); Mean Platelet Volume 9.6 fl (6-9.5); Monocyte (Absolute #) 0.78 (0.0-1.3); Monocytes % 13.6 % (0.0-12.0); Platelet Count 211 K/mm3 (150-450); Red Blood Count 4.33 M/mm3 (4.1-5.4); Red Cell Distribution Width 14.4 % (11.5-14.0); White Blood Count 5.7 K/mm3 (4.0-10.5)
[2018-05-02 09:27] LABS: INR 1.08 (0.8-3.0)
[2018-05-02 09:42] LABS: ALKALINE PHOSPHATASE 61 U/L (38-126); ANION GAP 13.7 MEQ/L (5-15); BLOOD UREA NITROGEN 17 mg/dL (7-17); CHLORIDE 108 mmol/L (98-107); CK-Creatinine Phosphokinase 32 U/L (30-135); Carbon Dioxide 23 mmol/L (22-30); Creatinine 1 0.73 mg/dL (0.52-1.04); Glucose 100 mg/dL (74-106); NT PRO BNP 145 pg/mL (0-1800); Potassium 3.8 mmol/L (3.5-5.1); SGOT/AST 14 U/L (14-36); SGPT/ALT 9 U/L (0-35); SODIUM 141 mmol/L (137-145); Total Protein 7.7 g/dL (6.3-8.2)
[2018-05-02 10:09] VITALS: BP 145/97
--- NOTE | 2018-05-02 10:51 | XRAY ---
Indication: Chest pain and short of breath. Diarrhea. Multiple contiguous axial images obtained through the chest using 80 cc Isovue 370 contrast and PE protocol. Comparison: October 28, 2017. There is good opacification of the pulmonary arteries to include the lobar and segmental branches. Again no filling defect or pulmonary embolus. Heart is not enlarged. Aorta remains minimally arteriosclerotic without aneurysm/dissection. No pathologic mediastinal/hilar lymphadenopathy. Again small hiatal hernia. Examination of the lung parenchyma demonstrates stable mild bilateral scattered fibrosis/scarring. No suspicious pulmonary mass, infiltrate, or effusion. Bony thorax intact again with mild degenerative changes throughout the spine, old left rib fractures, and benign chunky left breast calcifications. Limited upper abdomen again demonstrates cholecystectomy clips. Impression: 1. Again negative pulmonary embolus. 2. Stable scattered fibrosis/scarring, small hiatal hernia, and old left rib fractures. 2. No new/acute cardiopulmonary abnormalities. CT DI 19.25
[2018-05-02 11:03] VITALS: PULSE 72; O2SAT 96
== END 2018-05-02 11:31 | disposition home or self-care (01) ==
LOC: ED 08:30
DX: R07.9 Chest pain, unspecified (principal); R06.02 Shortness of breath; R19.7 Diarrhea, unspecified
CPT/HCPCS: 36000; 36415; 71045; 71260; 80053; 82550; 83880; 84484; 85025; 85379; 85610; 93005; 99284; A9270-GY

== ENCOUNTER 2018-06-21 13:05 | Emergency (ER) | payer MEDICARE ==
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
[2018-06-21] MEDS ORDERED: Sodium Chloride 0.9% 1000 ML 1,000 ML IV SCH (13:45)
[2018-06-21 13:56] LABS: BASOPHIL % 0.2 % (0.0-0.4); Basophil (Absolute #) 0.01 (0-0.4); Eosinophil % 0.6 % (0.00-5.0); Eosinophil (Absolute #) 0.03 (0-0.5); Granulocyte Absolute (ANC) 2.87 (1.4-6.9); Granulocytes % 60.5 % (36.0-66.0); Hematocrit 46.5 % (35-47); Hemoglobin 14.9 gm/dl (12.0-16.0); Lymphocyte (Absolute #) 1.44 (1.0-4.6); Lymphocytes % 30.3 % (24.0-44.0); Mean Cell Volume 93.2 fl (78-100); Mean Corpuscular Hemoglobin 29.9 pg (26-32); Mean Platelet Volume 9.9 fl (6-9.5); Monocytes % 8.4 % (0.0-12.0); Platelet Count 241 K/mm3 (150-450); Red Blood Count 4.99 M/mm3 (4.1-5.4); Red Cell Distribution Width 14.6 % (11.5-14.0); White Blood Count 4.8 K/mm3 (4.0-10.5)
[2018-06-21] MEDS ORDERED: Sodium Chloride 0.9% 1000 ML 1,000 ML ONE (14:00)
[2018-06-21 14:10] LABS: INR 1.04 (0.8-3.0)
[2018-06-21 14:17] LABS: ALBUMIN 4.6 g/dL (3.5-5.0); ALKALINE PHOSPHATASE 75 U/L (38-126); ANION GAP 15.4 MEQ/L (5-15); BLOOD UREA NITROGEN 20 mg/dL (7-17); CHLORIDE 105 mmol/L (98-107); Calcium 9.9 mg/dL (8.4-10.2); Carbon Dioxide 24 mmol/L (22-30); Creatinine 1 0.89 mg/dL (0.52-1.04); Glucose 143 mg/dL (74-106); Potassium 3.9 mmol/L (3.5-5.1); SGOT/AST 21 U/L (14-36); SGPT/ALT 11 U/L (0-35); SODIUM 141 mmol/L (137-145); Total Protein 8.6 g/dL (6.3-8.2)
--- NOTE | 2018-06-21 14:30 | XRAY ---
Exam: CT of the head without IV contrast from 06/21/2018. CTDI: 67.22 Comparison: CT of the head without IV contrast December 03, 2016. Indication: Syncope. Technique: Non-IV contrast axial images were obtained through the brain. Reconstructed coronal and sagittal images were created and reviewed. Findings: The patient's head is tilted slightly in the CT gantry. The ventricles are mildly prominent representing no change. There is also moderate prominence of the cortical sulci, sylvian fissures, and basilar cisterns suggesting cerebral volume loss/atrophy. This is unchanged. Mild chronic small vessel ischemic changes are seen, most prominent within the external capsules. No acute low-attenuation territorial infarct is seen. Dense dural calcification is seen within the anterior aspect of the interhemispheric fissure representing no change. There is no acute intracranial bleed or abnormal extra-axial fluid collection. No midline shift or focal mass effect is seen. The calvarium of the skull appears intact. There is mild deviation of the nasal septum toward the left. Mild chronic mucoperiosteal thickening is seen within the ethmoid sinuses suggesting chronic sinus disease. Taryn bullosa are seen within the middle nasal turbinates, more prominent on the right than left. No air-fluid levels are seen. The mastoid air cells appear unremarkable. The middle ear cavities appear grossly unremarkable. Impression: 1. No acute intracranial bleed or other acute intracranial abnormality is seen. 2. Age-related global atrophy and mild chronic microvascular disease are seen, the latter most prominent within the external capsules. This is essentially unchanged from 03/05/2017. 3. Mild chronic bilateral ethmoid sinus disease without air-fluid levels.
[2018-06-21 15:03] LABS: Appearance CLOUDY (CLEAR); Bilirubin NEGATIVE (NEGATIVE); Blood NEGATIVE Ery/ul (0-5); Glucose 50 mg/dL (NEGATIVE); Ketones SMALL (NEGATIVE); Leukocyte Esterase NEGATIVE (NEGATIVE); Nitrite NEGATIVE (NEGATIVE); Protein,Urine Dip >=500 (Negative); Specific Gravity 1.024 (1.005-1.025); Urobilinogen NEGATIVE mg/dL (0-1)
[2018-06-21 15:06] VITALS: O2SAT 96
[2018-06-21 16:28] VITALS: BP 138/95; PULSE 57
== END 2018-06-21 16:53 | disposition home or self-care (01) ==
LOC: ED 13:05
DX: R55 Syncope and collapse (principal); R53.1 Weakness
CPT/HCPCS: 36415; 70450; 80053; 81001; 82962; 85025; 85610; 93005; 93041; 96360; 96361; 99284

== ENCOUNTER 2019-01-12 14:23 | Inpatient (IN) | payer MEDICARE ==
[2019-01-12] MEDS ORDERED: Sodium Chloride 0.9% 1000 ML 1,000 ML IV STA (15:29)
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
[2019-01-12 16:14] LABS: Appearance SLIGHTLY CLOUDY (CLEAR); Bacteria RARE /HPF (NEGATIVE); Bilirubin NEGATIVE (NEGATIVE); Blood NEGATIVE Ery/ul (0-5); Epithelial Cells FEW /HPF (FEW); Glucose NEGATIVE (NEGATIVE); Ketones NEGATIVE (NEGATIVE); Leukocyte Esterase SMALL (NEGATIVE); Mucus SLIGHT /HPF (NEGATIVE); Nitrite NEGATIVE (NEGATIVE); Protein,Urine Dip NEGATIVE (Negative); Specific Gravity 1.017 (1.005-1.025); Urobilinogen NEGATIVE mg/dL (0-1)
[2019-01-12 16:19] LABS: BASOPHIL % 0.5 % (0.0-0.4); Basophil (Absolute #) 0.02 (0-0.4); Eosinophil % 1.4 % (0.00-5.0); Eosinophil (Absolute #) 0.06 (0-0.5); Granulocytes % 62.3 % (36.0-66.0); Hematocrit 36.1 % (35-47); Hemoglobin 11.4 gm/dl (12.0-16.0); Lymphocyte (Absolute #) 1.04 (1.0-4.6); Mean Cell Volume 94.8 fl (78-100); Mean Corpuscular Hemoglobin 29.9 pg (26-32); Mean Corpuscular Hgb Concent. 31.6 g/dl (32-36); Mean Platelet Volume 9.1 fl (6-9.5); Monocytes % 11.8 % (0.0-12.0); Platelet Count 205 K/mm3 (150-450); Red Blood Count 3.81 M/mm3 (4.1-5.4); Red Cell Distribution Width 14.4 % (11.5-14.0); White Blood Count 4.3 K/mm3 (4.0-10.5)
[2019-01-12 16:23] LABS: Amphetamine,Urine NEGATIVE (NEGATIVE); Barbiturate,Urine NEGATIVE (NEGATIVE); Benzodiazepine,Urine NEGATIVE (NEGATIVE); Cocaine,Urine NEGATIVE (NEGATIVE); Methadone,Urine NEGATIVE (NEGATIVE); Opiate,Urine NEGATIVE (NEGATIVE); PCP,Urine NEGATIVE (NEGATIVE); THC,Urine NEGATIVE (NEGATIVE)
[2019-01-12 16:26] LABS: INR 1.04 (0.8-3.0); PROTIME 11.8 SECONDS (9.95-12.35)
[2019-01-12 16:29] LABS: PTT 29.3 SECONDS (25.3-37.0)
[2019-01-12 16:31] LABS: ALBUMIN 3.8 g/dL (3.5-5.0); ALKALINE PHOSPHATASE 53 U/L (38-126); BLOOD UREA NITROGEN 18 mg/dL (7-17); CHLORIDE 107 mmol/L (98-107); CK-Creatinine Phosphokinase 66 U/L (30-135); Carbon Dioxide 28 mmol/L (22-30); Creatinine 1 0.74 mg/dL (0.52-1.04); Glucose 100 mg/dL (74-106); Potassium 4.3 mmol/L (3.5-5.1); SGOT/AST 16 U/L (14-36); SGPT/ALT 8 U/L (0-35); SODIUM 142 mmol/L (137-145); Total Protein 7.1 g/dL (6.3-8.2)
[2019-01-12] MEDS ORDERED: Sodium Chloride 0.9% 1000 ML 1,000 ML ONE (16:50)
[2019-01-12] MEDS ORDERED: ROCEPHIN 1 Gm-D5w 50 ml Bag** 1 G/50 ML IVPB IV STA (18:56)
[2019-01-12] MEDS ORDERED: TYLENOL 325 MG PO PRN (18:57)
[2019-01-12] MEDS ORDERED: Sodium Chloride 0.9% 1000 ML 1,000 ML IV SCH (19:00)
[2019-01-12] MEDS ORDERED: ROCEPHIN 1 Gm-D5w 50 ml Bag** 1 G/50 ML IVPB IV ONE (19:54)
--- NOTE | 2019-01-12 22:11 | XRAY ---
Indication: Altered mental status. Multiple contiguous axial images obtained through the head without contrast. Comparison: June 21, 2018. Stable age-appropriate global atrophy and mild periventricular degenerative micro-ischemia bilaterally. No acute intracranial hemorrhage, abnormal extra-axial fluid collection, or mass effect. Fourth ventricle is midline without hydrocephalus. Bony calvarium intact. Visualized paranasal sinuses and mastoid air cells are clear. Impression: Stable nonacute senile brain. CTDI 68.81
--- NOTE | 2019-01-12 22:19 | XRAY ---
Indication: Confusion. Comparison: May 02, 2018. Portable chest remains clear. Heart and mediastinal structures within normal limits. Bony thorax intact again with mild osteopenia, degenerative changes, and levoscoliosis. Impression: Nonacute chest with chronic features.
[2019-01-13] MEDS ORDERED: NORVASC 5 MG PO ONE (00:37)
[2019-01-13 04:45] LABS: BASOPHIL % 0.3 % (0.0-0.4); Basophil (Absolute #) 0.01 (0-0.4); Eosinophil % 2.5 % (0.00-5.0); Eosinophil (Absolute #) 0.09 (0-0.5); Granulocytes % 49.9 % (36.0-66.0); Hematocrit 35.1 % (35-47); Hemoglobin 11.2 gm/dl (12.0-16.0); Lymphocyte (Absolute #) 1.23 (1.0-4.6); Lymphocytes % 34.2 % (24.0-44.0); Mean Cell Volume 94.1 fl (78-100); Mean Corpuscular Hgb Concent. 31.9 g/dl (32-36); Mean Platelet Volume 8.8 fl (6-9.5); Monocytes % 13.1 % (0.0-12.0); Platelet Count 182 K/mm3 (150-450); Red Blood Count 3.73 M/mm3 (4.1-5.4); Red Cell Distribution Width 14.4 % (11.5-14.0); White Blood Count 3.6 K/mm3 (4.0-10.5)
[2019-01-13 04:58] LABS: ALBUMIN 3.2 g/dL (3.5-5.0); ALKALINE PHOSPHATASE 47 U/L (38-126); BLOOD UREA NITROGEN 14 mg/dL (7-17); CHLORIDE 108 mmol/L (98-107); Calcium 8.5 mg/dL (8.4-10.2); Carbon Dioxide 27 mmol/L (22-30); Creatinine 1 0.65 mg/dL (0.52-1.04); Glucose 92 mg/dL (74-106); Potassium 3.9 mmol/L (3.5-5.1); SGOT/AST 16 U/L (14-36); SGPT/ALT 8 U/L (0-35); SODIUM 140 mmol/L (137-145); Total Protein 6.3 g/dL (6.3-8.2)
[2019-01-13] MEDS: NORVASC 5 MG PO SCH (10:00)
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
[2019-01-13] MEDS: PLAVIX 75 MG Tablet PO SCH (14:35)
[2019-01-13] MEDS: Aricept 10 MG PO SCH (14:35)
[2019-01-13] MEDS ORDERED: XYLOCAINE 1% HCL 20 ML MDV ONE (19:53)
[2019-01-13] MEDS ORDERED: Rocephin 1000 MG INJ IM SCH (20:00)
[2019-01-14] MEDS ORDERED: XYLOCAINE 1% HCL 20 ML MDV IJ PRN (07:08)
[2019-01-14] MEDS: ENOXAPARIN SODIUM SQ SCH (09:18)
[2019-01-14] MEDS: PLAVIX 75 MG Tablet PO SCH (09:19)
[2019-01-14] MEDS: Aricept 10 MG PO SCH (09:19)
[2019-01-14] MEDS: NORVASC 5 MG PO SCH (09:19)
--- NOTE | 2019-01-14 09:52 | PCM.NOTE ---
Date and Time: 01/14/19 0950 Subjective Assessment: patient remains confused, denies any pain and states she feels perfect. she is cooperative Objective Exam General Appearance: no apparent distress, alert Neurologic Exam: alert, No oriented x 3 Skin Exam: normal color, warm, dry Respiratory Exam: normal breath sounds, lungs clear, No respiratory distress Cardiovascular Exam: regular rate/rhythm, normal heart sounds Gastrointestinal/Abdomen Exam: soft, No tenderness, No mass Extremity Exam: normal inspection, normal range of motion OBJECTIVE DATA Vital Signs: Vital Signs - 24 hr Temp Pulse Resp BP Pulse Ox 01/14/19 07:37 97.8 F 55 L 20 148/69 97 01/14/19 04:00 98.4 F 54 L 18 154/74 96 01/14/19 00:10 98.1 F 67 20 140/66 97 01/13/19 20:00 97.9 F 63 18 128/76 97 01/13/19 16:36 97.6 F 54 L 20 149/69 96 01/13/19 10:56 97.8 F 59 L 20 174/84 96 Pain Assessment - Last Documented Pain Intensity 0 Pain Scale Used [facility] Intake and Output: Intake & Output 01/11/19 01/12/19 01/13/19 01/14/19 11:59 11:59 11:59 11:59 Intake Total 743 1660 Output Total 1750 2400 Balance -1007 -740 Weight 75.8 kg Radiology Exams: Radiology Procedures Category Date Time Status CHEST 1 VIEW (PORTABLE) Stat Exams 01/12/19 15:31 Completed HEAD WITHOUT CONTRAST [CT] Stat Exams 01/12/19 15:32 Completed Assessment/Plan (1) Urinary tract infection Current Visit: Yes Status: Acute Qualifiers: Urinary tract infection type: site unspecified Hematuria presence: without hematuria Qualified Code(s): N39.0 - Urinary tract infection, site not specified Assessment & Plan: on rocephin, culture pending Code(s): N39.0 - URINARY TRACT INFECTION, SITE NOT SPECIFIED (2) Altered mental status Current Visit: Yes Status: Acute Qualifiers: Altered mental status type: unspecified Qualified Code(s): R41.82 - Altered mental status, unspecified Assessment & Plan: patient will likely not be able to care for herself, will consult discharge planning Code(s): R41.82 - ALTERED MENTAL STATUS, UNSPECIFIED (3) Essential hypertension Current Visit: No Status: Acute Assessment & Plan: improved control Code(s): I10 - ESSENTIAL (PRIMARY) HYPERTENSION
[2019-01-14] MEDS ORDERED: Rocephin 1000 MG INJ IM SCH ×3 (16:00→20:00)
[2019-01-14] MEDS: Rocephin 1000 MG INJ IM SCH (22:45)
[2019-01-15 05:01] LABS: BASOPHIL % 0.2 % (0.0-0.4); Basophil (Absolute #) 0.01 (0-0.4); Eosinophil (Absolute #) 0.09 (0-0.5); Granulocyte Absolute (ANC) 2.72 (1.4-6.9); Granulocytes % 61.2 % (36.0-66.0); Hemoglobin 12.4 gm/dl (12.0-16.0); Lymphocyte (Absolute #) 0.97 (1.0-4.6); Lymphocytes % 21.8 % (24.0-44.0); Mean Cell Volume 91.6 fl (78-100); Mean Corpuscular Hemoglobin 29.9 pg (26-32); Mean Corpuscular Hgb Concent. 32.6 g/dl (32-36); Mean Platelet Volume 8.8 fl (6-9.5); Monocytes % 14.8 % (0.0-12.0); Platelet Count 226 K/mm3 (150-450); Red Blood Count 4.15 M/mm3 (4.1-5.4); Red Cell Distribution Width 14.3 % (11.5-14.0); White Blood Count 4.5 K/mm3 (4.0-10.5)
[2019-01-15 05:11] LABS: ANION GAP 13.6 MEQ/L (5-15); BLOOD UREA NITROGEN 15 mg/dL (7-17); CHLORIDE 106 mmol/L (98-107); Calcium 9.5 mg/dL (8.4-10.2); Carbon Dioxide 26 mmol/L (22-30); Creatinine 1 0.69 mg/dL (0.52-1.04); Glucose 105 mg/dL (74-106); Potassium 3.9 mmol/L (3.5-5.1); SODIUM 141 mmol/L (137-145)
--- NOTE | 2019-01-15 08:26 | PCM.NOTE ---
Date and Time: 01/15/19823 Subjective Assessment: patient is sleeping comfortably, rousable and denies any problems or discomfort. apparently she was up most of the night according to nursing. Objective Exam General Appearance: no apparent distress Neurologic Exam: alert, No oriented x 3 Skin Exam: normal color, warm, dry Respiratory Exam: normal breath sounds, lungs clear, No respiratory distress Cardiovascular Exam: regular rate/rhythm, normal heart sounds Gastrointestinal/Abdomen Exam: soft, No tenderness, No mass Extremity Exam: normal inspection, normal range of motion OBJECTIVE DATA Vital Signs: Vital Signs - 24 hr Temp Pulse Resp BP Pulse Ox 01/15/19 07:47 98.1 F 52 L 18 130/63 96 01/15/19 04:00 98.5 F 62 20 105/55 97 01/15/19 00:00 98.1 F 68 18 142/73 96 01/14/19 20:00 98.2 F 29 L 18 157/73 96 01/14/19 15:11 98 F 65 20 166/93 97 01/14/19 12:47 97.8 F 86 20 154/80 96 Pain Assessment - Last Documented Pain Intensity 0 Pain Scale Used [facility] Intake and Output: Intake & Output 01/12/19 01/13/19 01/14/19 01/15/19 11:59 11:59 11:59 11:59 Intake Total 743 1660 1460 Output Total 1750 2400 1500 Balance -1007 -740 -40 Weight 75.8 kg Lab Results: Lab Results-Last 24 Hours 01/15/19 01/15/19 Range/Units 04:54 04:54 WBC 4.5 (4.0-10.5) K/mm3 RBC 4.15 (4.1-5.4) M/mm3 Hgb 12.4 (12.0-16.0) gm/dl Hct 38.0 (35-47) % MCV 91.6 (78-100) fl MCH 29.9 (26-32) pg MCHC 32.6 (32-36) g/dl RDW 14.3 H (11.5-14.0) % Plt Count 226 (150-450) K/mm3 MPV 8.8 (6-9.5) fl Gran % 61.2 (36.0-66.0) % Eos # (Auto) 0.09 (0-0.5) Absolute Lymphs (auto) 0.97 L (1.0-4.6) Absolute Monos (auto) 0.66 (0.0-1.3) Lymphocytes % 21.8 L (24.0-44.0) % Monocytes % 14.8 H (0.0-12.0) % Eosinophils % 2.0 (0.00-5.0) % Basophils % 0.2 (0.0-0.4) % Absolute Granulocytes 2.72 (1.4-6.9) Basophils # 0.01 (0-0.4) Sodium 141 (137-145) mmol/L Potassium 3.9 (3.5-5.1) mmol/L Chloride 106 (98-107) mmol/L Carbon Dioxide 26 (22-30) mmol/L Anion Gap 13.6 (5-15) MEQ/L BUN 15 (7-17) mg/dL Creatinine 0.69 (0.52-1.04) mg/dL Estimated GFR > 60.0 ML/MIN Glucose 105 (74-106) mg/dL Calcium 9.5 (8.4-10.2) mg/dL Assessment/Plan (1) Urinary tract infection Current Visit: Yes Status: Acute Qualifiers: Urinary tract infection type: site unspecified Hematuria presence: without hematuria Qualified Code(s): N39.0 - Urinary tract infection, site not specified Assessment & Plan: culture with mixed jb Code(s): N39.0 - URINARY TRACT INFECTION, SITE NOT SPECIFIED (2) Altered mental status Current Visit: Yes Status: Acute Qualifiers: Altered mental status type: unspecified Qualified Code(s): R41.82 - Altered mental status, unspecified Assessment & Plan: appears to have advanced dementia, no family has been present to discuss care at home vs placement at [facility] Code(s): R41.82 - ALTERED MENTAL STATUS, UNSPECIFIED (3) Essential hypertension Current Visit: No Status: Acute Assessment & Plan: stable on amlodipine at this time Code(s): I10 - ESSENTIAL (PRIMARY) HYPERTENSION
[2019-01-15] MEDS: NORVASC 5 MG PO SCH (12:43)
[2019-01-15] MEDS: Aricept 10 MG PO SCH (12:43)
[2019-01-15] MEDS: ENOXAPARIN SODIUM SQ SCH (12:43)
[2019-01-15] MEDS: PLAVIX 75 MG Tablet PO SCH (12:43)
[2019-01-15] MEDS ORDERED: ZOFRAN ODT 4 MG PO PRN (16:30)
[2019-01-15] MEDS: Rocephin 1000 MG INJ IM SCH (22:30)
--- NOTE | 2019-01-16 08:55 | PCM.DS ---
Discharge Summary Date of Admission: 01/13/19 21:00 Admitting Physician: CECIL GUERRERO Primary Care Provider: CECIL GUERRERO Allergies Allergies No Known Drug Allergies Allergy (Verified 01/12/19 18:52) Hospital Summary - Hospital Course Hospital Course: Pt is 78 yo female pt of Dr. Guerrero (previously of Dr. Edwardo Grover) with COPD, SHOSHANA positive, depression, CHF (LV diastolic dysfunction), OA, CAD, and dementia who was admitted through ER after being found wandering the streets barefoot, looking for a golfcart, covered in bugs. She was found to be demented and possibly have a UTI so was treated for 3d with IV rocephin. On admission her CT head and CXR were acutely negative. Labs were basically wnl. Troponins neg x 5. UDS neg. The night before last she was up all night. However last night she slept. This morning she is not oriented to place or time (cannot guess at place or date ). Family was unable to be contacted until last night. They would like for her to go to [facility] for admission. They say that she was living with a boyfriend but when someone checked on her recently all the boyfriend's things were gone. - Vitals & Intake/Output Vital Signs: Vital Signs Temperature 97.9 F 01/16/19 08:00 Pulse Rate 59 L 01/16/19 08:00 Respiratory Rate 17 01/16/19 08:00 Blood Pressure 126/58 01/16/19 08:00 O2 Sat by Pulse Oximetry 93 L 01/16/19 08:00 Intake & Output: Intake & Output 01/13/19 01/14/19 01/15/19 01/16/19 11:59 11:59 11:59 11:59 Intake Total 743 1660 1460 60 Output Total 1750 2400 1500 850 Balance -1007 -740 -40 -790 Weight 75.8 kg 75.8 kg - Lab Result Diagrams: 01/15/19 04:54 01/15/19 04:54 Micro Results-Entire Visit: Microbiology 01/12/19 16:00 Urine Culture - Final Urine, Catheterized MIXED ADAMARIS; 3 OR MORE TYPES. NO PREDOMINANT ORGANISM. NO FURTHER WORKUP. PLEASE RESUBMIT IF CLINICALLY INDICATED. Discharge Exam General Appearance: no apparent distress, alert Neurologic Exam: cooperative, disoriented Eye Exam: eyes nml inspection Neck Exam: normal inspection Respiratory Exam: normal breath sounds, lungs clear, No crackles/rales, No rhonchi, No wheezing Cardiovascular Exam: regular rate/rhythm, normal heart sounds, No murmur Gastrointestinal/Abdomen Exam: soft, No normal bowel sounds (hypoactive), No tenderness Extremity Exam: normal inspection, No pedal edema, No swelling Skin Exam: normal color, warm, dry, No rash Final Diagnosis/Problem List - Final Discharge Diagnosis/Problem (1) Altered mental status Current Visit: Yes Status: Acute Assessment & Plan: Will go ahead and check TSH, RPR, B12/folate, ammonia, and GGT just to rule out other etiologies. Family thinks she is more demented currently due to pt's boyfriend leaving. May be able to d/c pt to [facility] today. Code(s): R41.82 - ALTERED MENTAL STATUS, UNSPECIFIED (2) Urinary tract infection Current Visit: Yes Status: Resolved Assessment & Plan: UCx grew mixed colonies. She did complete 3d of rocephin IV. Code(s): N39.0 - URINARY TRACT INFECTION, SITE NOT SPECIFIED (3) Essential hypertension Current Visit: No Status: Chronic Assessment & Plan: now on amlodipine and stable Code(s): I10 - ESSENTIAL (PRIMARY) HYPERTENSION (4) Coronary artery disease Current Visit: No Status: Chronic Code(s): I25.10 - ATHSCL HEART DISEASE OF [place] CORONARY ARTERY W/O ANG PCTRS (5) Dementia Current Visit: Yes Status: Chronic Code(s): F03.90 - UNSPECIFIED DEMENTIA WITHOUT BEHAVIORAL DISTURBANCE - Discharge Disposition: Home, Self-Care Condition: Stable Prescriptions: No Action Donepezil HCl 10 mg PO DAILY Clopidogrel Bisulfate [Clopidogrel] 75 mg PO DAILY Amlodipine Besylate 2.5 mg PO DAILY Follow up with: CECIL GUERRERO MD [Primary Care Provider] - 1 Week
[2019-01-16] MEDS: PLAVIX 75 MG Tablet PO SCH (09:42)
[2019-01-16] MEDS: Aricept 10 MG PO SCH (09:42)
[2019-01-16] MEDS: NORVASC 5 MG PO SCH (09:42)
[2019-01-16] MEDS: ENOXAPARIN SODIUM SQ SCH (09:42)
[2019-01-16 10:54] LABS: Folate (Folic Acid) 8.72 ng/mL (2.76 - >20)
[2019-01-16 17:07] VITALS: BP 150/60; PULSE 50; O2SAT 98
[2019-01-17 14:26] LABS: RPR Screen Non Reactive (Non Reactive)
== END 2019-01-16 17:35 | DRG 948 ==
LOC: ED 14:23 → MED SURG 20:51 → OBSVTOIN 01-13 21:00 → MED SURG 01-14 05:21
PROVIDERS: ADMIT Family Medicine; ATTEND Family Medicine
DX: R41.82 Altered mental status, unspecified (principal); N39.0 Urinary tract infection, site not specified; J44.9 Chronic obstructive pulmonary disease, unspecified; I50.9 Heart failure, unspecified; I25.10 Atherosclerotic heart disease of native coronary artery without angina pectoris; F32.9 Major depressive disorder, single episode, unspecified; I10 Essential (primary) hypertension; F03.90 Unspecified dementia, unspecified severity, without behavioral disturbance, psychotic disturbance, mood disturbance, and anxiety; Z79.899 Other long term (current) drug therapy
CPT/HCPCS: 0064U; 0065U; 36000; 36415; 70450; 71045; 80048; 80053; 80307; 81001; 82140; 82550; 82607; 82746; 82977; 84443; 84484; 85025; 85610; 85730; 86593; 87086; 93005; 93041; 96360; 96361; 96365; 99285; G0378; 86592; J0696; J1650; Q0162; A9270-GY

== ENCOUNTER 2019-09-29 19:36 | Inpatient (IN) | payer MEDICARE ==
[2019-09-29] MEDS ORDERED: Zofran 4 MG/2 ML VIAL IV ONE (20:23)
[2019-09-29] MEDS ORDERED: Sodium Chloride 0.9% 1000 ML 1,000 ML IV STA (20:23)
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
[2019-09-29] MEDS ORDERED: Sodium Chloride 0.9% 1000 ML 1,000 ML ONE (20:26)
[2019-09-29] MEDS ORDERED: Zofran 4 MG/2 ML VIAL ONE (20:26)
[2019-09-29 20:35] LABS: BASOPHIL % 0.2 % (0.0-0.4); Basophil (Absolute #) 0.01 (0-0.4); Eosinophil % 1.4 % (0.00-5.0); Eosinophil (Absolute #) 0.09 (0-0.5); Hematocrit 38.3 % (35-47); Lymphocyte (Absolute #) 0.74 (1.0-4.6); Lymphocytes % 11.2 % (24.0-44.0); Mean Cell Volume 93.2 fl (78-100); Mean Corpuscular Hemoglobin 29.2 pg (26-32); Mean Corpuscular Hgb Concent. 31.3 g/dl (32-36); Mean Platelet Volume 9.5 fl (7.5-11.0); Monocyte (Absolute #) 0.44 (0.0-1.3); Monocytes % 6.7 % (0.0-12.0); Neutrophil % 80.5 % (36.0-66.0); Platelet Count 228 K/mm3 (150-450); Red Blood Count 4.11 M/mm3 (4.1-5.4); Red Cell Distribution Width 13.8 % (11.5-14.0); White Blood Count 6.6 K/mm3 (4.0-10.5)
[2019-09-29 20:40] LABS: ALBUMIN 3.9 g/dL (3.5-5.0); ANION GAP 9.6 MEQ/L (5-15); BILIRUBIN,TOTAL 0.5 mg/dL (0.2-1.3); Calcium 9.3 mg/dL (8.4-10.2); Creatinine 1 1.11 mg/dL (0.52-1.04); Potassium 3.9 mmol/L (3.5-5.1); Total Protein 7.8 g/dL (6.3-8.2)
[2019-09-29 20:54] LABS: Appearance CLOUDY (CLEAR); Bacteria MANY /HPF (NEGATIVE); Bilirubin NEGATIVE (NEGATIVE); Blood SMALL Ery/ul (0-5); Crystals Unidentified 25-50 /HPF (NEGATIVE); Glucose NEGATIVE (NEGATIVE); Ketones TRACE (NEGATIVE); Leukocyte Esterase MODERATE (NEGATIVE); Mucus MANY /HPF (NEGATIVE); Nitrite POSITIVE (NEGATIVE); Protein,Urine Dip 30 (Negative); Specific Gravity 1.021 (1.005-1.025); Urobilinogen NEGATIVE mg/dL (0-1); WBC >100 /HPF (0-5)
[2019-09-29] MEDS ORDERED: ROCEPHIN 1 Gm-D5w 50 ml Bag** 1 G/50 ML IVPB IV STA (21:07)
[2019-09-29] MEDS ORDERED: ROCEPHIN 1 Gm-D5w 50 ml Bag** 1 G/50 ML IVPB IV ONE (21:11)
[2019-09-29 21:33] LABS: INFLUENZA A NEGATIVE (NEGATIVE); INFLUENZA B NEGATIVE (NEGATIVE); RESPIRATORY SYNCTIAL VIRUS NEGATIVE (Negative)
[2019-09-29] MEDS ORDERED: PROTONIX 40 MG IV IV SCH (21:49)
[2019-09-29] MEDS ORDERED: TYLENOL 325 MG PO PRN (21:49)
[2019-09-29] MEDS ORDERED: Zofran 4 MG/2 ML VIAL IV PRN (21:49)
[2019-09-29] MEDS: Sodium Chloride 0.9% 1000 ML 1,000 ML IV SCH (23:00)
[2019-09-29] MEDS: FLAGYL 500 MG IVPB 500 MG/100 ML BAG IV SCH (23:00)
[2019-09-30] MEDS: Risperdal 1 MG PO SCH ×3 (00:05→21:11)
[2019-09-30 06:01] LABS: Absolute Neutrophil Ct (ANC) 3.87 (1.4-6.9); BASOPHIL % 0.2 % (0.0-0.4); Basophil (Absolute #) 0.01 (0-0.4); Eosinophil % 1.8 % (0.00-5.0); Eosinophil (Absolute #) 0.09 (0-0.5); Hematocrit 34.1 % (35-47); Hemoglobin 10.8 gm/dl (12.0-16.0); Lymphocyte (Absolute #) 0.73 (1.0-4.6); Lymphocytes % 14.3 % (24.0-44.0); Mean Cell Volume 94.2 fl (78-100); Mean Corpuscular Hemoglobin 29.8 pg (26-32); Mean Corpuscular Hgb Concent. 31.7 g/dl (32-36); Mean Platelet Volume 9.2 fl (7.5-11.0); Monocytes % 7.8 % (0.0-12.0); Neutrophil % 75.9 % (36.0-66.0); Platelet Count 168 K/mm3 (150-450); Red Blood Count 3.62 M/mm3 (4.1-5.4); Red Cell Distribution Width 13.9 % (11.5-14.0); White Blood Count 5.1 K/mm3 (4.0-10.5)
[2019-09-30 06:12] LABS: ANION GAP 8.3 MEQ/L (5-15); BLOOD UREA NITROGEN 13 mg/dL (7-17); CHLORIDE 111 mmol/L (98-107); Calcium 7.9 mg/dL (8.4-10.2); Carbon Dioxide 24 mmol/L (22-30); Creatinine 1 0.82 mg/dL (0.52-1.04); Glucose 94 mg/dL (74-106); Potassium 3.9 mmol/L (3.5-5.1); SODIUM 140 mmol/L (137-145)
[2019-09-30] MEDS: FLAGYL 500 MG IVPB 500 MG/100 ML BAG IV SCH ×4 (06:15→23:17)
--- NOTE | 2019-09-30 08:43 | XRAY ---
Indication: Abdomen pain. Multiple contiguous axial images obtained through the abdomen and pelvis without contrast as ordered. Comparison: October 28, 2017. Lung bases again demonstrates minimal bibasilar fibrosis/scarring. No infiltrate or effusion. Heart is not enlarged. New small fluid distended hiatal hernia. Noncontrasted stomach and bowel loops appear nonobstructed. Stable small descending duodenal diverticulum. There is now mild fluid distended small and large bowel loops with fluid leveling, ileus versus enterocolitis. No free fluid/air. Stable sigmoid diverticulosis, cholecystectomy, and hysterectomy. [place] balloon catheter empties the urinary bladder. Remaining liver, pancreas, spleen, adrenal glands, kidneys, and ureters appear unremarkable for noncontrast exam. Stable mild aortoiliac calcifications without AAA. Osseous structures again demonstrates mild/moderate degenerative changes throughout the thoracolumbar spine and old left lower rib fractures. New finding old proximal left femur fracture with intact orthopedic screws. Impression: 1. New fluid distended small and large bowel loops with fluid leveling. Rule out ileus versus enterocolitis. 2. New small hiatal hernia and [place] catheter in situ. 3. Again incidental duodenal diverticulum, sigmoid diverticulosis, and chronic bony findings. Comment: Preliminary interpretation was made by [facility]. No critical discrepancy.
[2019-09-30] MEDS ORDERED: VITAMIN D3 PO SCH (10:00)
[2019-09-30] MEDS ORDERED: ROCEPHIN 1 Gm-D5w 50 ml Bag** 1 G/50 ML IVPB IV SCH (10:00)
[2019-09-30] MEDS ORDERED: CALCIUM CARBONATE PO SCH (10:00)
[2019-09-30] MEDS ORDERED: MEDICATION INTERVENTION MC SCH (10:15)
[2019-09-30] MEDS: Calcium 500MG W/Vit D Tablet PO SCH ×2 (11:22→21:11)
[2019-09-30] MEDS: Aricept 10 MG PO SCH (11:22)
[2019-09-30] MEDS: NORVASC 5 MG PO SCH (11:22)
[2019-09-30] MEDS: PLAVIX 75 MG Tablet PO SCH (11:22)
[2019-09-30] MEDS: Sodium Chloride 0.9% 1000 ML 1,000 ML IV SCH ×2 (11:29→23:17)
[2019-09-30] MEDS: PROTONIX 40 MG IV IV SCH (21:11)
[2019-09-30] MEDS: ROCEPHIN 1 Gm-D5w 50 ml Bag** 1 G/50 ML IVPB IV SCH (21:19)
[2019-09-30] MEDS ORDERED: NON-FORMULARY ITEM (Melatonin/Pyridoxine Hcl (B6) [Melatonin 3 Mg Tablet] 1 EACH) PO SCH (22:00)
[2019-09-30 22:15] LABS: Campylobacter POSITIVE (NEGATIVE)
[2019-09-30 22:19] LABS: C. Difficile Organism NEGATIVE (NEGATIVE); Plesiomonas shigelloides NEGATIVE (NEGATIVE)
[2019-09-30 22:21] LABS: Adenovirus F 40/41 NEGATIVE (NEGATIVE); Astrovirus NEGATIVE (NEGATIVE); Cryptosporidium NEGATIVE (NEGATIVE); Cyclospora cayentanensis NEGATIVE (NEGATIVE); Entamoeaba histolytica NEGATIVE (NEGATIVE); Enteroaggregative E.coli NEGATIVE (NEGATIVE); Enteropathogenic E.coli NEGATIVE (NEGATIVE); Enterotoxigenic E.coli NEGATIVE (NEGATIVE); Giardia lamblia NEGATIVE (NEGATIVE); Norovirus GI/GII POSITIVE (NEGATIVE); Rotavirus A NEGATIVE (NEGATIVE); Salmonella NEGATIVE (NEGATIVE); Sapovirus NEGATIVE (NEGATIVE); Shiga-like toxin prod.E.coli NEGATIVE (NEGATIVE); Vibrio NEGATIVE (NEGATIVE); Vibrio cholerae NEGATIVE (NEGATIVE); Yersinia enterocolitica NEGATIVE (NEGATIVE)
[2019-10-01 04:57] LABS: Hematocrit 32.8 % (35-47); Hemoglobin 10.1 gm/dl (12.0-16.0); Mean Corpuscular Hemoglobin 28.9 pg (26-32); Mean Corpuscular Hgb Concent. 30.8 g/dl (32-36); Mean Platelet Volume 9.2 fl (7.5-11.0); Platelet Count 180 K/mm3 (150-450); Red Blood Count 3.49 M/mm3 (4.1-5.4); Red Cell Distribution Width 13.8 % (11.5-14.0); White Blood Count 5.6 K/mm3 (4.0-10.5)
[2019-10-01 05:17] LABS: ALBUMIN 2.7 g/dL (3.5-5.0); ALKALINE PHOSPHATASE 46 U/L (38-126); ANION GAP 6.6 MEQ/L (5-15); BLOOD UREA NITROGEN 12 mg/dL (7-17); CHLORIDE 110 mmol/L (98-107); Calcium 7.9 mg/dL (8.4-10.2); Carbon Dioxide 25 mmol/L (22-30); Creatinine 1 0.82 mg/dL (0.52-1.04); Glucose 94 mg/dL (74-106); Potassium 3.9 mmol/L (3.5-5.1); SGOT/AST 17 U/L (14-36); SGPT/ALT 7 U/L (0-35); SODIUM 138 mmol/L (137-145); Total Protein 5.8 g/dL (6.3-8.2)
[2019-10-01] MEDS: FLAGYL 500 MG IVPB 500 MG/100 ML BAG IV SCH (05:18)
--- NOTE | 2019-10-01 07:55 | HP ---
CHIEF COMPLAINT: Vomiting, diarrhea, weakness. HISTORY OF PRESENT ILLNESS: The patient is a 78 year-old white female who presented to the emergency room after having episodes of emesis x3. The third time she apparently had some what appeared to them bloody emesis. She also had some loose stools. The patient also on questioning reports she has had urinary difficulties for quite some time. It was noticed by the nursing staff that upon cleaning her up pressing on the suprapubic area she had feces coming from the vaginal area. PAST MEDICAL/SURGICAL HISTORY: Otherwise significant for what appears to be mild dementia. She has hypertension, chronic obstructive pulmonary disease, degenerative disc disease, osteoarthritis and osteoporosis. She has had spinal stenosis, anxiety, depression. She has had cardiac stent placed. She has had cholecystectomy. She has had a partial lung resection. Neck surgery. Left hip surgery. MEDICATIONS: Her current list of medications are amlodipine 5 mg a day, calcium with vitamin D, Plavix 75 mg daily, benazepril 10 mg a day, melatonin, risperidone 0.5 mg b.i.d. and Sertraline 100 mg daily. ALLERGIES: NKDA. PHYSICAL EXAMINATION: Her vital signs on admission showed temperature 97.9F, pulse 64, respiratory rate 26 and blood pressure 127/56. O2 saturation 96%. HEENT: Normocephalic, atraumatic. Pupils equal round reactive to light. Extraocular movements intact. Oropharynx is pink and moist. NECK: Supple without lymphadenopathy, thyromegaly or JVD. CHEST: Clear to auscultation. HEART: Regular rate and rhythm. ABDOMEN: Soft. No palpable masses. EXTREMITIES: Without cyanosis, clubbing or edema. NEUROLOGIC: The patient appears to be awake, alert with no focal deficits noted. LAB DATA AND TESTS: In the emergency room, influenza A, B and respiratory syncytial virus negative. The lactic acid was 1.1. Her white count was 6,600, hemoglobin 12.0, PLT count 228,000. There did appear to be a left shift with 80.5% granulocytes. Occult blood was negative in the stool. [place] screen was negative. UA showed a specific gravity of 1.021, positive for nitrite and greater than 100 white blood cells per high power field. She had a CT scan which was consistent with enteritis. ASSESSMENT: A patient with: 1) Gastroenteritis and weakness. She has been rehydrated with IV fluids. 2) Urinary tract infection with what appears to possibly be rectovaginal fistula. The patient has been placed on IV fluids and IV antibiotics of Rocephin and Flagyl while pending the culture reports. The patient will be continued on her usual home medications otherwise.
--- NOTE | 2019-10-01 08:19 | PCM.NOTE ---
Date and Time: 10/01/19816 Subjective Assessment: patient reports vomiting and diarrhea have resolved. no pain, she complains of feeling weak and appears confused this morning Objective Exam General Appearance: no apparent distress Neurologic Exam: alert, No oriented x 3 Skin Exam: normal color, warm, dry Respiratory Exam: normal breath sounds, lungs clear, No respiratory distress Cardiovascular Exam: regular rate/rhythm, normal heart sounds Gastrointestinal/Abdomen Exam: soft, No tenderness, No mass OBJECTIVE DATA Vital Signs: Vital Signs - 24 hr Temp Pulse Resp BP Pulse Ox 10/01/19 08:03 97.1 F 60 24 133/69 97 10/01/19 04:03 97.8 F 61 16 130/66 94 L 10/01/19 00:03 97.9 F 63 17 148/56 95 09/30/19 20:27 99.4 F 60 18 128/58 92 L 09/30/19 16:08 99.2 F 61 20 129/58 09/30/19 12:25 98.2 F 53 L 18 120/56 95 Pain Assessment - Last Documented Pain Intensity 0 Pain Scale Used [facility] Intake and Output: Intake & Output 09/28/19 09/29/19 09/30/19 10/01/19 10:59 10:59 11:59 11:59 Intake Total 720 Output Total 1550 Balance -830 Weight 77.5 kg Lab Results: Lab Results-Last 24 Hours 09/30/19 09/30/19 10/01/19 Range/Units 20:28 20:28 04:25 WBC 5.6 (4.0-10.5) K/mm3 RBC 3.49 L (4.1-5.4) M/mm3 Hgb 10.1 L (12.0-16.0) gm/dl Hct 32.8 L (35-47) % MCV 94.0 (78-100) fl MCH 28.9 (26-32) pg MCHC 30.8 L (32-36) g/dl RDW 13.8 (11.5-14.0) % Plt Count 180 (150-450) K/mm3 MPV 9.2 (7.5-11.0) fl Sodium (137-145) mmol/L Potassium (3.5-5.1) mmol/L Chloride (98-107) mmol/L Carbon Dioxide (22-30) mmol/L Anion Gap (5-15) MEQ/L BUN (7-17) mg/dL Creatinine (0.52-1.04) mg/dL Estimated GFR ML/MIN Glucose (74-106) mg/dL Calcium (8.4-10.2) mg/dL Total Bilirubin (0.2-1.3) mg/dL AST (14-36) U/L ALT (0-35) U/L Alkaline Phosphatase (38-126) U/L Serum Total Protein (6.3-8.2) g/dL Albumin (3.5-5.0) g/dL Stool Occult Blood NEGATIVE (Negative) Stl C. cayetanensis PCR NEGATIVE (NEGATIVE) Stl Adenov F 40/41 PCR NEGATIVE (NEGATIVE) Stool Astrovirus (PCR) NEGATIVE (NEGATIVE) Stool Cryptosporidium PCR NEGATIVE (NEGATIVE) Stool EPEC (PCR) NEGATIVE (NEGATIVE) Stool EAEC (PCR) NEGATIVE (NEGATIVE) Stl E. histolytica PCR NEGATIVE (NEGATIVE) Stl P. shigelloides PCR NEGATIVE (NEGATIVE) Stool Sapovirus (PCR) NEGATIVE (NEGATIVE) St Y.enterocolitica PCR NEGATIVE (NEGATIVE) Stool Vibrio (PCR) NEGATIVE (NEGATIVE) Stl Vibrio cholerae PCR NEGATIVE (NEGATIVE) Stl Norovirus GI/GII PCR POSITIVE A (NEGATIVE) Campylobacter (PCR) POSITIVE A (NEGATIVE) C. difficile (PCR) NEGATIVE (NEGATIVE) Enterotoxigenic E. coli NEGATIVE (NEGATIVE) E.coli Shiga Toxins NEGATIVE (NEGATIVE) Giardia lamblia NEGATIVE (NEGATIVE) Rotavirus A (PCR) NEGATIVE (NEGATIVE) Salmonella (PCR) NEGATIVE (NEGATIVE) Shigella (PCR) NEGATIVE (NEGATIVE) 10/01/19 Range/Units 04:25 WBC (4.0-10.5) K/mm3 RBC (4.1-5.4) M/mm3 Hgb (12.0-16.0) gm/dl Hct (35-47) % MCV (78-100) fl MCH (26-32) pg MCHC (32-36) g/dl RDW (11.5-14.0) % Plt Count (150-450) K/mm3 MPV (7.5-11.0) fl Sodium 138 (137-145) mmol/L Potassium 3.9 (3.5-5.1) mmol/L Chloride 110 H (98-107) mmol/L Carbon Dioxide 25 (22-30) mmol/L Anion Gap 6.6 (5-15) MEQ/L BUN 12 (7-17) mg/dL Creatinine 0.82 (0.52-1.04) mg/dL Estimated GFR > 60.0 ML/MIN Glucose 94 (74-106) mg/dL Calcium 7.9 L (8.4-10.2) mg/dL Total Bilirubin 0.30 (0.2-1.3) mg/dL AST 17 (14-36) U/L ALT 7 (0-35) U/L Alkaline Phosphatase 46 (38-126) U/L Serum Total Protein 5.8 L (6.3-8.2) g/dL Albumin 2.7 L (3.5-5.0) g/dL Stool Occult Blood (Negative) Stl C. cayetanensis PCR (NEGATIVE) Stl Adenov F 40/41 PCR (NEGATIVE) Stool Astrovirus (PCR) (NEGATIVE) Stool Cryptosporidium PCR (NEGATIVE) Stool EPEC (PCR) (NEGATIVE) Stool EAEC (PCR) (NEGATIVE) Stl E. histolytica PCR (NEGATIVE) Stl P. shigelloides PCR (NEGATIVE) Stool Sapovirus (PCR) (NEGATIVE) St Y.enterocolitica PCR (NEGATIVE) Stool Vibrio (PCR) (NEGATIVE) Stl Vibrio cholerae PCR (NEGATIVE) Stl Norovirus GI/GII PCR (NEGATIVE) Campylobacter (PCR) (NEGATIVE) C. difficile (PCR) (NEGATIVE) Enterotoxigenic E. coli (NEGATIVE) E.coli Shiga Toxins (NEGATIVE) Giardia lamblia (NEGATIVE) Rotavirus A (PCR) (NEGATIVE) Salmonella (PCR) (NEGATIVE) Shigella (PCR) (NEGATIVE) Radiology Exams: Radiology Procedures Category Date Time Status ABDOMEN AND PELVIS W/0 CONTRAS [CT] Stat Exams 09/29/19 20:24 Completed Assessment/Plan (1) Urinary tract infection Current Visit: Yes Status: Acute Assessment & Plan: on rocephin for UTI, e coli sens Code(s): N39.0 - URINARY TRACT INFECTION, SITE NOT SPECIFIED (2) Enteritis Current Visit: Yes Status: Acute Assessment & Plan: norovirus on GI panel, d/c flagyl Code(s): K52.9 - NONINFECTIVE GASTROENTERITIS AND COLITIS, UNSPECIFIED (3) Weakness Current Visit: Yes Status: Acute Code(s): R53.1 - WEAKNESS (4) Altered mental status Current Visit: No Status: Acute Assessment & Plan: acute exacerbation of underlying dementia Code(s): R41.82 - ALTERED MENTAL STATUS, UNSPECIFIED
[2019-10-01] MEDS: ZOLOFT 50 MG TABLET PO SCH (08:31)
[2019-10-01] MEDS: PLAVIX 75 MG Tablet PO SCH (08:31)
[2019-10-01] MEDS: Risperdal 1 MG PO SCH ×2 (08:32→21:13)
[2019-10-01] MEDS: Calcium 500MG W/Vit D Tablet PO SCH ×2 (08:32→21:13)
[2019-10-01] MEDS: Aricept 10 MG PO SCH (08:32)
[2019-10-01] MEDS: NORVASC 5 MG PO SCH (08:35)
--- NOTE | 2019-10-01 11:59 | XRAY ---
Indication: care home placement. Comparison: January 12, 2019. Portable chest now demonstrates minimal blunting left costophrenic angle, probable tiny pleural effusion. Remaining heart and lungs unremarkable. Bony thorax intact again with osteopenia, degenerative changes, and levoscoliosis.
[2019-10-01] MEDS: Sodium Chloride 0.9% 1000 ML 1,000 ML IV SCH (19:55)
[2019-10-01] MEDS: ROCEPHIN 1 Gm-D5w 50 ml Bag** 1 G/50 ML IVPB IV SCH (21:12)
[2019-10-01] MEDS: PROTONIX 40 MG IV IV SCH (21:12)
[2019-10-02 04:53] LABS: Absolute Neutrophil Ct (ANC) 2.94 (1.4-6.9); BASOPHIL % 0.2 % (0.0-0.4); Basophil (Absolute #) 0.01 (0-0.4); Eosinophil % 3.1 % (0.00-5.0); Eosinophil (Absolute #) 0.14 (0-0.5); Hematocrit 32.7 % (35-47); Hemoglobin 10.3 gm/dl (12.0-16.0); Lymphocyte (Absolute #) 0.91 (1.0-4.6); Lymphocytes % 20.3 % (24.0-44.0); Mean Cell Volume 92.6 fl (78-100); Mean Corpuscular Hemoglobin 29.2 pg (26-32); Mean Corpuscular Hgb Concent. 31.5 g/dl (32-36); Mean Platelet Volume 9.2 fl (7.5-11.0); Monocyte (Absolute #) 0.49 (0.0-1.3); Monocytes % 10.9 % (0.0-12.0); Neutrophil % 65.5 % (36.0-66.0); Platelet Count 176 K/mm3 (150-450); Red Blood Count 3.53 M/mm3 (4.1-5.4); Red Cell Distribution Width 13.7 % (11.5-14.0); White Blood Count 4.5 K/mm3 (4.0-10.5)
[2019-10-02 05:17] LABS: ALBUMIN 2.8 g/dL (3.5-5.0); ALKALINE PHOSPHATASE 43 U/L (38-126); ANION GAP 5.3 MEQ/L (5-15); BLOOD UREA NITROGEN 8 mg/dL (7-17); CHLORIDE 112 mmol/L (98-107); Calcium 7.9 mg/dL (8.4-10.2); Carbon Dioxide 26 mmol/L (22-30); Creatinine 1 0.67 mg/dL (0.52-1.04); Glucose 95 mg/dL (74-106); Potassium 3.4 mmol/L (3.5-5.1); SGOT/AST 19 U/L (14-36); SGPT/ALT 7 U/L (0-35); SODIUM 140 mmol/L (137-145); Total Protein 5.8 g/dL (6.3-8.2)
[2019-10-02] MEDS: Sodium Chloride 0.9% 1000 ML 1,000 ML IV SCH ×3 (05:54→21:26)
--- NOTE | 2019-10-02 09:13 | PCM.NOTE ---
Date and Time: 10/02/19 09 Subjective Assessment: Pt is pleasantly confused this morning, states that she is at "your mom's house " and does not know the year. Jack declined to take the pt. Per RN has some erythema inferior to the breast. Objective Exam General Appearance: no apparent distress, alert Neurologic Exam: cooperative, disoriented Skin Exam: normal color, warm, dry, No rash Respiratory Exam: normal breath sounds, lungs clear, No crackles/rales, No rhonchi, No wheezing Cardiovascular Exam: regular rate/rhythm, normal heart sounds, No murmur Gastrointestinal/Abdomen Exam: soft, normal bowel sounds, tenderness (diffuse, mild), No distention, No mass, No guarding, No rebound Extremity Exam: normal inspection, No pedal edema, No swelling Back Exam: normal inspection, No rash OBJECTIVE DATA Vital Signs: Vital Signs - 24 hr Temp Pulse Resp BP Pulse Ox 10/02/19 08:01 97.2 F 55 L 18 145/79 94 L 10/02/19 05:00 98.4 F 64 18 145/70 93 L 10/02/19 00:57 99.5 F 62 20 138/71 94 L 10/01/19 21:00 97.2 F 56 L 20 133/78 93 L 10/01/19 17:00 97.1 F 61 22 137/65 94 L 10/01/19 13:00 97.3 F 57 L 20 138/69 97 Pain Assessment - Last Documented Pain Intensity 0 Pain Scale Used FLACC Intake and Output: Intake & Output 09/29/19 09/30/19 10/01/19 10/02/19 10:59 11:59 11:59 11:59 Intake Total 960 3882 Output Total 1550 2700 Balance -590 1182 Weight 77.5 kg 77.1 kg Lab Results: Lab Results-Last 24 Hours 10/02/19 10/02/19 Range/Units 04:30 04:30 WBC 4.5 (4.0-10.5) K/mm3 RBC 3.53 L (4.1-5.4) M/mm3 Hgb 10.3 L (12.0-16.0) gm/dl Hct 32.7 L (35-47) % MCV 92.6 (78-100) fl MCH 29.2 (26-32) pg MCHC 31.5 L (32-36) g/dl RDW 13.7 (11.5-14.0) % Plt Count 176 (150-450) K/mm3 MPV 9.2 (7.5-11.0) fl Gran % 65.5 (36.0-66.0) % Eos # (Auto) 0.14 (0-0.5) Absolute Lymphs (auto) 0.91 L (1.0-4.6) Absolute Monos (auto) 0.49 (0.0-1.3) Lymphocytes % 20.3 L (24.0-44.0) % Monocytes % 10.9 (0.0-12.0) % Eosinophils % 3.1 (0.00-5.0) % Basophils % 0.2 (0.0-0.4) % Absolute Granulocytes 2.94 (1.4-6.9) Basophils # 0.01 (0-0.4) Sodium 140 (137-145) mmol/L Potassium 3.4 L (3.5-5.1) mmol/L Chloride 112 H (98-107) mmol/L Carbon Dioxide 26 (22-30) mmol/L Anion Gap 5.3 (5-15) MEQ/L BUN 8 (7-17) mg/dL Creatinine 0.67 (0.52-1.04) mg/dL Estimated GFR > 60.0 ML/MIN Glucose 95 (74-106) mg/dL Calcium 7.9 L (8.4-10.2) mg/dL Total Bilirubin 0.30 (0.2-1.3) mg/dL AST 19 (14-36) U/L ALT 7 (0-35) U/L Alkaline Phosphatase 43 (38-126) U/L Serum Total Protein 5.8 L (6.3-8.2) g/dL Albumin 2.8 L (3.5-5.0) g/dL Radiology Exams: Radiology Procedures Category Date Time Status CHEST 1 VIEW (PORTABLE) Routine Exams 10/01/19 11:30 Completed Multi-Disciplinary Progress Notes: Multi-Disciplinary Progress Notes 10/01/19 15:57 Case Management Note by Antoinette Levin ATTEMPTED TO REACH FAMILY, NO ANSWER, AND NO VOICEMAIL BOX SET UP. Initialized on 10/01/19 15:57 - END OF NOTE 10/01/19 15:52 Case Management Note by Antoinette Levin FROM [facility] CALLED TO REPORT THAT THEY WILL NOT BE ABLE TO ACCEPT PT ON DISCHARGE. WILL DISCUSS WITH FAMILY FOR ALTERNATE OPTIONS. Initialized on 10/01/19 15:52 - END OF NOTE 10/01/19 13:40 Case Management Note by Antoinette Levin PASRR COMPLETE, NO LEVEL II REQUIRED. FAXED COPY TO [facility]. Initialized on 10/01/19 13:40 - END OF NOTE 10/01/19 11:28 Case Management Note by Julia Grubbs CALLED REFERRAL TO [facility] AT [facility]- FAXED THEM INFORMATION WITH FACESHEET AT THIS TIME Initialized on 10/01/19 11:28 - END OF NOTE Assessment/Plan (1) Enteritis Current Visit: Yes Status: Acute Assessment & Plan: Has norovirus. Improved - no stools reported last night. Code(s): K52.9 - NONINFECTIVE GASTROENTERITIS AND COLITIS, UNSPECIFIED (2) Urinary tract infection Current Visit: Yes Status: Acute Qualifiers: Urinary tract infection type: acute cystitis Hematuria presence: without hematuria Qualified Code(s): N30.00 - Acute cystitis without hematuria Assessment & Plan: On rocep day #3 Code(s): N39.0 - URINARY TRACT INFECTION, SITE NOT SPECIFIED (3) Altered mental status Current Visit: No Status: Acute Qualifiers: Altered mental status type: delirium Qualified Code(s): R41.0 - Disorientation, unspecified Assessment & Plan: With underlying dementia - I'm unsure what her baseline is. She certainly seems to need a LTCF on discharge. Code(s): R41.82 - ALTERED MENTAL STATUS, UNSPECIFIED (4) Dementia Current Visit: No Status: Chronic Qualifiers: Dementia type: unspecified type Dementia behavioral disturbance: without behavioral disturbance Qualified Code(s): F03.90 - Unspecified dementia without behavioral disturbance Code(s): F03.90 - UNSPECIFIED DEMENTIA WITHOUT BEHAVIORAL DISTURBANCE (5) Essential hypertension Current Visit: No Status: Chronic Code(s): I10 - ESSENTIAL (PRIMARY) HYPERTENSION
[2019-10-02] MEDS: ENOXAPARIN SODIUM SQ SCH (09:51)
[2019-10-02] MEDS: Risperdal 1 MG PO SCH ×2 (09:52→21:26)
[2019-10-02] MEDS: ZOLOFT 50 MG TABLET PO SCH (09:52)
[2019-10-02] MEDS: Calcium 500MG W/Vit D Tablet PO SCH ×2 (09:52→21:26)
[2019-10-02] MEDS: PLAVIX 75 MG Tablet PO SCH (09:54)
[2019-10-02] MEDS: Aricept 10 MG PO SCH (09:57)
[2019-10-02] MEDS: NYSTOP 30 GM CREAM TOP SCH ×2 (09:57→21:27)
[2019-10-02] MEDS: NORVASC 5 MG PO SCH (09:57)
[2019-10-02] MEDS: PROTONIX 40 MG IV IV SCH (21:27)
[2019-10-02] MEDS: ROCEPHIN 1 Gm-D5w 50 ml Bag** 1 G/50 ML IVPB IV SCH (21:27)
--- NOTE | 2019-10-03 09:01 | PCM.NOTE ---
Date and Time: 10/03/19 0858 Subjective Assessment: patient reports she is feeling better, she is more oriented and answering questions more appropriately. she is tolerating po intake well, continues to have issues with stool leakage and per nursing seems to leak vaginally Objective Exam General Appearance: no apparent distress Neurologic Exam: alert, cooperative Skin Exam: normal color, warm, dry Respiratory Exam: normal breath sounds, lungs clear, No respiratory distress Cardiovascular Exam: regular rate/rhythm, normal heart sounds Gastrointestinal/Abdomen Exam: soft, No tenderness, No mass Extremity Exam: normal inspection, normal range of motion OBJECTIVE DATA Vital Signs: Vital Signs - 24 hr Temp Pulse Resp BP Pulse Ox 10/03/19 07:58 97.0 F 54 L 18 147/76 96 10/03/19 04:29 96.5 F 54 L 17 134/66 95 10/03/19 00:04 97.9 F 52 L 17 153/85 95 10/02/19 21:00 97.7 F 113 H 18 119/58 96 10/02/19 16:50 98.3 F 54 L 18 134/74 94 L 10/02/19 13:00 98.3 F 58 L 18 120/66 94 L Pain Assessment - Last Documented Pain Intensity 0 Pain Scale Used 0-10 Pain Scale,FLACC Intake and Output: Intake & Output 09/30/19 10/01/19 10/02/19 10/03/19 11:59 11:59 11:59 11:59 Intake Total 960 4362 4045 Output Total 1550 2700 2400 Balance -590 1662 1645 Weight 77.5 kg 77.1 kg 75.8 kg Radiology Exams: Radiology Procedures Category Date Time Status CHEST 1 VIEW (PORTABLE) Routine Exams 10/01/19 11:30 Completed Multi-Disciplinary Progress Notes: Multi-Disciplinary Progress Notes 10/02/19 10:49 Case Management Note by Julia Grubbs S/W ARMANDO (PATIENT'S SON)- NOTIFIED THAT PATIENT IS UNABLE TO GO TO [facility]. HE WOULD LIKE REFERRAL TO BE SENT TO [facility] AT THIS TIME. Initialized on 10/02/19 10:49 - END OF NOTE Assessment/Plan (1) Urinary tract infection Current Visit: Yes Status: Acute Qualifiers: Urinary tract infection type: acute cystitis Hematuria presence: without hematuria Qualified Code(s): N30.00 - Acute cystitis without hematuria Assessment & Plan: e coli sens to rocephin, on day #4 at this time Code(s): N39.0 - URINARY TRACT INFECTION, SITE NOT SPECIFIED (2) Enteritis Current Visit: Yes Status: Acute Assessment & Plan: norovirus/campylobacter, symptoms improved. repeat gi panel for ECF placement to remove from isolation Code(s): K52.9 - NONINFECTIVE GASTROENTERITIS AND COLITIS, UNSPECIFIED (3) Rectovaginal fistula Current Visit: Yes Status: Acute Assessment & Plan: consult surgery today, not sure if she would be a candidate for any intervention with her overall health condition/dementia Code(s): N82.3 - FISTULA OF VAGINA TO LARGE INTESTINE (4) Weakness Current Visit: Yes Status: Acute Assessment & Plan: plan for rehab stay at [facility] upon discharge Code(s): R53.1 - WEAKNESS (5) Altered mental status Current Visit: No Status: Acute Qualifiers: Altered mental status type: delirium Qualified Code(s): R41.0 - Disorientation, unspecified Code(s): R41.82 - ALTERED MENTAL STATUS, UNSPECIFIED
[2019-10-03] MEDS: ENOXAPARIN SODIUM SQ SCH (09:46)
[2019-10-03] MEDS: Calcium 500MG W/Vit D Tablet PO SCH ×2 (09:46→21:29)
[2019-10-03] MEDS: ZOLOFT 50 MG TABLET PO SCH (09:46)
[2019-10-03] MEDS: Aricept 10 MG PO SCH (09:46)
[2019-10-03] MEDS: PLAVIX 75 MG Tablet PO SCH (09:46)
[2019-10-03] MEDS: Risperdal 1 MG PO SCH ×2 (09:46→21:29)
[2019-10-03] MEDS: NYSTOP 30 GM CREAM TOP SCH ×2 (09:47→21:30)
[2019-10-03] MEDS: NORVASC 5 MG PO SCH (09:47)
[2019-10-03] MEDS: Sodium Chloride 0.9% 1000 ML 1,000 ML IV SCH (11:44)
[2019-10-03 11:57] LABS: Adenovirus F 40/41 NEGATIVE (NEGATIVE); Astrovirus NEGATIVE (NEGATIVE); C. Difficile Organism NEGATIVE (NEGATIVE); Campylobacter NEGATIVE (NEGATIVE); Cryptosporidium NEGATIVE (NEGATIVE); Cyclospora cayentanensis NEGATIVE (NEGATIVE); Entamoeaba histolytica NEGATIVE (NEGATIVE); Enteroaggregative E.coli NEGATIVE (NEGATIVE); Enteropathogenic E.coli NEGATIVE (NEGATIVE); Enterotoxigenic E.coli NEGATIVE (NEGATIVE); Giardia lamblia NEGATIVE (NEGATIVE); Norovirus GI/GII POSITIVE (NEGATIVE); Plesiomonas shigelloides NEGATIVE (NEGATIVE); Rotavirus A NEGATIVE (NEGATIVE); Salmonella NEGATIVE (NEGATIVE); Sapovirus NEGATIVE (NEGATIVE); Shiga-like toxin prod.E.coli NEGATIVE (NEGATIVE); Vibrio NEGATIVE (NEGATIVE); Vibrio cholerae NEGATIVE (NEGATIVE); Yersinia enterocolitica NEGATIVE (NEGATIVE)
[2019-10-03] MEDS: PROTONIX 40 MG IV IV SCH (21:29)
[2019-10-03] MEDS: ROCEPHIN 1 Gm-D5w 50 ml Bag** 1 G/50 ML IVPB IV SCH (21:31)
[2019-10-04] MEDS: Sodium Chloride 0.9% 1000 ML 1,000 ML IV SCH ×2 (00:25→09:53)
[2019-10-04] MEDS: NYSTOP 30 GM CREAM TOP SCH ×2 (09:47→23:02)
[2019-10-04] MEDS: Risperdal 1 MG PO SCH ×2 (09:48→21:04)
[2019-10-04] MEDS: ZOLOFT 50 MG TABLET PO SCH (09:49)
[2019-10-04] MEDS: NORVASC 5 MG PO SCH (09:49)
[2019-10-04] MEDS: Calcium 500MG W/Vit D Tablet PO SCH ×2 (09:49→21:05)
[2019-10-04] MEDS: Aricept 10 MG PO SCH (09:49)
[2019-10-04] MEDS: ENOXAPARIN SODIUM SQ SCH (09:49)
--- NOTE | 2019-10-04 11:46 | PCM.NOTE ---
Date and Time: 10/04/19 1145 Subjective Assessment: doing well, no new complaints. remains slightly confused. family not interested in fistula repair per nursing. Objective Exam General Appearance: no apparent distress, alert Neurologic Exam: alert, cooperative, normal mood/affect, nml cerebellar function , sensation nml, No oriented x 3, No motor deficits Skin Exam: normal color, warm, dry Respiratory Exam: normal breath sounds, lungs clear, No respiratory distress Cardiovascular Exam: regular rate/rhythm, normal heart sounds Gastrointestinal/Abdomen Exam: soft, No tenderness, No mass OBJECTIVE DATA Vital Signs: Vital Signs - 24 hr Temp Pulse Resp BP Pulse Ox 10/04/19 11:36 98.8 F 67 18 128/56 96 10/04/19 07:33 98.3 F 55 L 18 147/81 93 L 10/04/19 04:18 97.9 F 58 L 16 160/72 94 L 10/03/19 23:46 97.8 F 55 L 17 139/68 94 L 10/03/19 20:31 98.0 F 56 L 18 143/71 94 L 10/03/19 17:00 98.3 F 55 L 18 156/79 96 10/03/19 13:00 98.4 F 54 L 18 131/67 96 Pain Assessment - Last Documented Pain Intensity 0 Pain Scale Used 0-10 Pain Scale Intake and Output: Intake & Output 10/01/19 10/02/19 10/03/19 10/04/19 11:59 11:59 11:59 11:59 Intake Total 960 4362 4875 3942 Output Total 1550 2700 2400 6051 Balance -590 1662 0535 -2107 Weight 77.5 kg 77.1 kg 75.8 kg 77.8 kg Lab Results: Lab Results-Last 24 Hours 10/03/19 Range/Units 10:38 Stl C. cayetanensis PCR NEGATIVE (NEGATIVE) Stl Adenov F 40/41 PCR NEGATIVE (NEGATIVE) Stool Astrovirus (PCR) NEGATIVE (NEGATIVE) Stool Cryptosporidium PCR NEGATIVE (NEGATIVE) Stool EPEC (PCR) NEGATIVE (NEGATIVE) Stool EAEC (PCR) NEGATIVE (NEGATIVE) Stl E. histolytica PCR NEGATIVE (NEGATIVE) Stl P. shigelloides PCR NEGATIVE (NEGATIVE) Stool Sapovirus (PCR) NEGATIVE (NEGATIVE) St Y.enterocolitica PCR NEGATIVE (NEGATIVE) Stool Vibrio (PCR) NEGATIVE (NEGATIVE) Stl Vibrio cholerae PCR NEGATIVE (NEGATIVE) Stl Norovirus GI/GII PCR POSITIVE A (NEGATIVE) Campylobacter (PCR) NEGATIVE (NEGATIVE) C. difficile (PCR) NEGATIVE (NEGATIVE) Enterotoxigenic E. coli NEGATIVE (NEGATIVE) E.coli Shiga Toxins NEGATIVE (NEGATIVE) Giardia lamblia NEGATIVE (NEGATIVE) Rotavirus A (PCR) NEGATIVE (NEGATIVE) Salmonella (PCR) NEGATIVE (NEGATIVE) Shigella (PCR) NEGATIVE (NEGATIVE) Multi-Disciplinary Progress Notes: Multi-Disciplinary Progress Notes 10/04/19 10:22 Case Management Note by Julia Grubbs FROM [facility] HERE TO SEE PATIENT Initialized on 10/04/19 10:22 - END OF NOTE 10/03/19 12:38 Case Management Note by Antoinette Levin CALL TO [facility] TO REPORT REFERRAL, REQUESTED REFERRAL BE FAXED TO . FAXED AT THIS TIME. Initialized on 10/03/19 12:38 - END OF NOTE 10/03/19 12:29 Case Management Note by Antoinette Levin SPOKE WITH MORIS ROBERSON, PT'S SON, REPORTS THAT THEY WILL REQUEST REFERRAL TO [facility] IN [place] SINCE [facility] DOES NOT HAVE ANY ISOLATION BEDS AT THIS TIME. REPORTS THAT HE HAD AN UNCLE IN [facility] SO THEY ARE FAMILIAR WITH THIS FACILITY. ALSO, DISCUSSED THAT DR. GUERRERO ORDERED SURGICAL CONSULT TODAY. SON, VERBALIZED UNDERSTANDING OF ALL INFORMATION AND ABLE TO REPEAT INFORMATION. NO ADD NEEDS IDENTIFIED AT THIS TIME. Initialized on 10/03/19 12:29 - END OF NOTE 10/03/19 12:08 Case Management Note by Julia Grubbs ATTEMPTED TO CALL [facility] TO SEE WHERE ELSE HE WOULD LIKE REFERRAL TO BE SENT FOR JAIL PLACEMENT. [facility] WILL NOT BE ABLE TO TAKE PATIENT D/T STOOL STILL COMING BACK POSITIVE AT THIS TIME. NO ANSWER-LEFT MESSAGE Initialized on 10/03/19 12:08 - END OF NOTE Assessment/Plan (1) Urinary tract infection Current Visit: Yes Status: Acute Qualifiers: Urinary tract infection type: acute cystitis Hematuria presence: without hematuria Qualified Code(s): N30.00 - Acute cystitis without hematuria Assessment & Plan: on rocephin, e coli sens. plan to ecf when accepted if no surgical intervention planned Code(s): N39.0 - URINARY TRACT INFECTION, SITE NOT SPECIFIED (2) Enteritis Current Visit: Yes Status: Acute Code(s): K52.9 - NONINFECTIVE GASTROENTERITIS AND COLITIS, UNSPECIFIED (3) Rectovaginal fistula Current Visit: Yes Status: Acute Code(s): N82.3 - FISTULA OF VAGINA TO LARGE INTESTINE (4) Weakness Current Visit: Yes Status: Acute Code(s): R53.1 - WEAKNESS (5) Altered mental status Current Visit: No Status: Acute Qualifiers: Altered mental status type: delirium Qualified Code(s): R41.0 - Disorientation, unspecified Code(s): R41.82 - ALTERED MENTAL STATUS, UNSPECIFIED
[2019-10-04] MEDS: ROCEPHIN 1 Gm-D5w 50 ml Bag** 1 G/50 ML IVPB IV SCH (21:04)
[2019-10-04] MEDS: PROTONIX 40 MG IV IV SCH (21:04)
[2019-10-05] MEDS: Calcium 500MG W/Vit D Tablet PO SCH (08:25)
[2019-10-05] MEDS: PLAVIX 75 MG Tablet PO SCH (08:25)
[2019-10-05] MEDS: Risperdal 1 MG PO SCH (08:25)
[2019-10-05] MEDS: ZOLOFT 50 MG TABLET PO SCH (08:25)
[2019-10-05] MEDS: Aricept 10 MG PO SCH (08:25)
[2019-10-05] MEDS: NORVASC 5 MG PO SCH (08:26)
[2019-10-05] MEDS: NYSTOP 30 GM CREAM TOP SCH (08:26)
[2019-10-05] MEDS: ENOXAPARIN SODIUM SQ SCH (08:26)
--- NOTE | 2019-10-05 08:42 | CONS ---
CONSULT DATE: 10/04/2019 REASON FOR CONSULT: Colovaginal fistula. HISTORY: The patient is a 78 year-old. She does not have a truly knowledgeable conversation. Intermittently she has a single fact that is correct. She seems to be stating that she is having stool out her vagina. She had a stroke at some time. She is 78 years old. Her eyes are open. She is conversant. She is arousable. Her chart was totally reviewed. Her CT scan was reviewed. There is really no abdominal examination here at the bedside to confirm or exclude this. She certainly could have a colonoscopy and she certainly could have vaginoscopy immediately prior to colonoscopy. It seems like this is not bothering her too much. One family member is not very anxious for surgery and one family member is possibly accept for surgery. IMPRESSION: The patient certainly could have a colovaginal fistula. These are not as destructive as the colovesical fistula. They do not absolutely require repair. I would think I would continue to see how this lady does with this. If she is doing poorly we could consider surgery. She may be bothered very little by this and she is not a very good surgical risk. PLAN: Some trial of observation, further treatment if necessary. Treatment would start with evaluation with colonoscopy and vaginoscopy.
--- NOTE | 2019-10-05 08:50 | PCM.DS ---
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 she has been treated for UTI, she is very confused and will go to [facility] for further care. - Vitals & Intake/Output Vital Signs: Vital Signs Temperature 98.1 F 10/05/19 08:29 Pulse Rate 62 10/05/19 08:29 Respiratory Rate 20 10/05/19 08:29 Blood Pressure 132/72 10/05/19 08:29 O2 Sat by Pulse Oximetry 93 L 10/05/19 08:29 Intake & Output: Intake & Output 10/02/19 10/03/19 10/04/19 10/05/19 11:59 11:59 11:59 11:59 Intake Total 4362 4875 3942 960 Output Total 2700 2400 6051 1200 Balance 9060 4902 -8571 -954 Weight 77.1 kg 75.8 kg 77.8 kg 79.1 kg - Lab Result Diagrams: 10/02/19 04:30 10/02/19 04:30 Micro Results-Entire Visit: Microbiology 09/29/19 20:40 Urine Culture - Final Catherized Escherichia Coli Discharge Exam General Appearance: no apparent distress Neurologic Exam: alert, cooperative, No oriented x 3 Respiratory Exam: normal breath sounds, lungs clear, No respiratory distress Cardiovascular Exam: regular rate/rhythm, normal heart sounds Gastrointestinal/Abdomen Exam: soft, No tenderness, No mass Extremity Exam: normal inspection, normal range of motion Skin Exam: normal color, warm, dry Final Diagnosis/Problem List - Final Discharge Diagnosis/Problem (1) Urinary tract infection Current Visit: Yes Status: Acute Code(s): N39.0 - URINARY TRACT INFECTION, SITE NOT SPECIFIED (2) Enteritis Current Visit: Yes Status: Acute Code(s): K52.9 - NONINFECTIVE GASTROENTERITIS AND COLITIS, UNSPECIFIED (3) Rectovaginal fistula Current Visit: Yes Status: Acute Assessment & Plan: fully treated with rocephin Code(s): N82.3 - FISTULA OF VAGINA TO LARGE INTESTINE (4) Weakness Current Visit: Yes Status: Acute Code(s): R53.1 - WEAKNESS (5) Altered mental status Current Visit: No Status: Acute Code(s): R41.82 - ALTERED MENTAL STATUS, UNSPECIFIED (6) Dementia Current Visit: No Status: Chronic Code(s): F03.90 - UNSPECIFIED DEMENTIA WITHOUT BEHAVIORAL DISTURBANCE - Discharge Disposition: DC TO ANY "OTHER" ASSISTED Condition: Stable Prescriptions: New Acetaminophen 325 mg [Tylenol 325 mg] 650 mg PO Q4H PRN PRN #30 tablet MDD 5 PRN Reason: Pain, Fever, Headache Continue Donepezil HCl 10 mg PO DAILY Clopidogrel Bisulfate [Clopidogrel] 75 mg PO DAILY Amlodipine Besylate 5 mg [Norvasc 5 mg] 5 mg PO QAM tablet Sertraline HCl 100 mg PO DAILY Risperidone [Risperdal] 0.5 mg PO BID Calcium Carbonate/Vitamin D3 [Calcium 600 + Vit D Tablet] 1 tablet PO BID Melatonin/Pyridoxine HCl (B6) [Melatonin 3 mg Tablet] 1 each PO HS
[2019-10-05 14:31] LABS: Adenovirus F 40/41 NEGATIVE (NEGATIVE); Astrovirus NEGATIVE (NEGATIVE); C. Difficile Organism NEGATIVE (NEGATIVE); Campylobacter NEGATIVE (NEGATIVE); Cryptosporidium NEGATIVE (NEGATIVE); Cyclospora cayentanensis NEGATIVE (NEGATIVE); Entamoeaba histolytica NEGATIVE (NEGATIVE); Enteroaggregative E.coli NEGATIVE (NEGATIVE); Enteropathogenic E.coli NEGATIVE (NEGATIVE); Enterotoxigenic E.coli NEGATIVE (NEGATIVE); Giardia lamblia NEGATIVE (NEGATIVE); Norovirus GI/GII POSITIVE (NEGATIVE); Plesiomonas shigelloides NEGATIVE (NEGATIVE); Rotavirus A NEGATIVE (NEGATIVE); Salmonella NEGATIVE (NEGATIVE); Sapovirus NEGATIVE (NEGATIVE); Shiga-like toxin prod.E.coli NEGATIVE (NEGATIVE); Vibrio NEGATIVE (NEGATIVE); Vibrio cholerae NEGATIVE (NEGATIVE); Yersinia enterocolitica NEGATIVE (NEGATIVE)
[2019-10-05 16:09] VITALS: BP 128/71; PULSE 74; O2SAT 94
== END 2019-10-05 16:00 | DRG 690 ==
LOC: ED 19:36 → MED SURG 21:44 → OBSVTOIN 09-30 09:30
PROVIDERS: ADMIT Family Medicine; ATTEND Family Medicine
DX: N39.0 Urinary tract infection, site not specified (principal); N82.3 Fistula of vagina to large intestine; F03.91 Unspecified dementia, unspecified severity, with behavioral disturbance; R11.2 Nausea with vomiting, unspecified; R10.84 Generalized abdominal pain; R19.7 Diarrhea, unspecified; I10 Essential (primary) hypertension; J44.9 Chronic obstructive pulmonary disease, unspecified; R41.82 Altered mental status, unspecified; R53.1 Weakness; Z79.899 Other long term (current) drug therapy
CPT/HCPCS: 36000; 36415; 51702; 71045; 74176; 80048; 80053; 81001; 82150; 82272; 83605; 83690; 85025; 85027; 86308; 87077; 87086; 87186; 87507; 87631; 93005; 93041; 96374; 99285; G0378; J0696; J1650; J2405; A9270-GY

== ENCOUNTER 2019-10-05 15:01 | Inpatient (IN) | payer MEDICARE ==
[2019-10-05] MEDS ORDERED: Zofran 4 MG/2 ML VIAL IV PRN (16:25)
[2019-10-05] MEDS ORDERED: MEDICATION INTERVENTION MC SCH (16:25)
[2019-10-05] MEDS ORDERED: Aplisol ID ONE (16:25)
[2019-10-05] MEDS: NYSTOP 30 GM CREAM TOP SCH (21:45)
[2019-10-05] MEDS: Calcium 500MG W/Vit D Tablet PO SCH (21:46)
[2019-10-05] MEDS: Risperdal 1 MG PO SCH (21:46)
[2019-10-05] MEDS: ROCEPHIN 1 Gm-D5w 50 ml Bag** 1 G/50 ML IVPB IV SCH (22:08)
[2019-10-05] MEDS: PROTONIX 40 MG IV IV SCH (22:09)
--- NOTE | 2019-10-06 07:46 | PCM.NOTE ---
Date and Time: 10/06/19 0746 Subjective Assessment: doing ok - Review of Systems Constitutional: No Fever, No Chills Eyes: No Symptoms Ears, Nose, & Throat: No Symptoms Respiratory: No Cough, No Short Of Breath Cardiac: No Chest Pain, No Edema, No Syncope Abdominal/Gastrointestinal: No Abdominal Pain, No Nausea, No Vomiting, No Diarrhea Genitourinary Symptoms: No Dysuria Musculoskeletal: No Back Pain, No Neck Pain Skin: No Rash Neurological: No Dizziness, No Focal Weakness, No Sensory Changes Psychological: No Symptoms Endocrine: No Symptoms Hematologic/Lymphatic: No Symptoms Immunological/Allergic: No Symptoms Objective Exam General Appearance: no apparent distress, alert Neurologic Exam: alert, oriented x 3, cooperative, normal mood/affect, nml cerebellar function, sensation nml, No motor deficits Skin Exam: normal color, warm, dry Eye Exam: PERRL, EOMI, eyes nml inspection Ears, Nose, Throat Exam: normal ENT inspection, pharynx normal, moist mucous membranes Neck Exam: normal inspection, non-tender, supple, full range of motion Respiratory Exam: normal breath sounds, lungs clear, No respiratory distress Cardiovascular Exam: regular rate/rhythm, normal heart sounds Gastrointestinal/Abdomen Exam: soft, No tenderness, No mass Extremity Exam: normal inspection, normal range of motion Back Exam: normal inspection, normal range of motion, No CVA tenderness, No vertebral tenderness Pelvic Exam: deferred Rectal Exam: deferred OBJECTIVE DATA Vital Signs: Vital Signs - 24 hr Temp Pulse Resp BP Pulse Ox 10/05/19 20:00 98.1 F 59 L 20 133/69 95 10/05/19 16:33 97.9 F 74 18 128/71 94 L Pain Assessment - Last Documented Pain Intensity 0 Pain Scale Used [facility] Intake and Output: Intake & Output 10/03/19 10/04/19 10/05/19 10/06/19 11:59 11:59 11:59 11:59 Intake Total 825 Output Total 1200 Balance -375 Weight 79.1 kg Assessment/Plan (1) Weakness Current Visit: No Status: Acute Code(s): R53.1 - WEAKNESS (2) Coronary artery disease Current Visit: No Status: Chronic Code(s): I25.10 - ATHSCL HEART DISEASE OF [place] CORONARY ARTERY W/O ANG PCTRS (3) Essential hypertension Current Visit: No Status: Chronic Code(s): I10 - ESSENTIAL (PRIMARY) HYPERTENSION
[2019-10-06] MEDS: Calcium 500MG W/Vit D Tablet PO SCH ×2 (09:50→21:06)
[2019-10-06] MEDS: ZOLOFT 50 MG TABLET PO SCH (09:51)
[2019-10-06] MEDS: Risperdal 1 MG PO SCH ×2 (09:51→21:06)
[2019-10-06] MEDS: NORVASC 5 MG PO SCH (09:51)
[2019-10-06] MEDS: PLAVIX 75 MG Tablet PO SCH (09:51)
[2019-10-06] MEDS: ENOXAPARIN SODIUM SQ SCH (09:51)
[2019-10-06] MEDS: Aricept 10 MG PO SCH (09:51)
[2019-10-06] MEDS: NYSTOP 30 GM CREAM TOP SCH ×2 (09:52→21:07)
[2019-10-06] MEDS ORDERED: Aplisol ID SCH (10:00)
[2019-10-06] MEDS: TYLENOL 325 MG PO PRN (10:01)
[2019-10-06] MEDS: PROTONIX 40 MG IV IV SCH (21:06)
[2019-10-06] MEDS: ROCEPHIN 1 Gm-D5w 50 ml Bag** 1 G/50 ML IVPB IV SCH (21:06)
--- NOTE | 2019-10-07 08:54 | PCM.NOTE ---
Date and Time: 10/07/19 0853 Subjective Assessment: doing ok - Review of Systems Constitutional: No Fever, No Chills Eyes: No Symptoms Ears, Nose, & Throat: No Symptoms Respiratory: No Cough, No Short Of Breath Cardiac: No Chest Pain, No Edema, No Syncope Abdominal/Gastrointestinal: No Abdominal Pain, No Nausea, No Vomiting, No Diarrhea Genitourinary Symptoms: No Dysuria Musculoskeletal: No Back Pain, No Neck Pain Skin: No Rash Neurological: No Dizziness, No Focal Weakness, No Sensory Changes Psychological: No Symptoms Endocrine: No Symptoms Hematologic/Lymphatic: No Symptoms Immunological/Allergic: No Symptoms Objective Exam General Appearance: no apparent distress, alert Neurologic Exam: alert, oriented x 3, cooperative, normal mood/affect, nml cerebellar function, sensation nml, No motor deficits Skin Exam: normal color, warm, dry Eye Exam: PERRL, EOMI, eyes nml inspection Ears, Nose, Throat Exam: normal ENT inspection, pharynx normal, moist mucous membranes Neck Exam: normal inspection, non-tender, supple, full range of motion Respiratory Exam: normal breath sounds, lungs clear, No respiratory distress Cardiovascular Exam: regular rate/rhythm, normal heart sounds Gastrointestinal/Abdomen Exam: soft, No tenderness, No mass Extremity Exam: normal inspection, normal range of motion Back Exam: normal inspection, normal range of motion, No CVA tenderness, No vertebral tenderness Pelvic Exam: deferred Rectal Exam: deferred OBJECTIVE DATA Vital Signs: Vital Signs - 24 hr Temp Pulse Resp BP Pulse Ox 10/07/19 07:34 97.0 F 54 L 18 147/81 95 10/06/19 20:24 98.0 F 63 17 131/64 97 Pain Assessment - Last Documented Pain Intensity 0 Pain Scale Used [facility] Intake and Output: Intake & Output 10/04/19 10/05/19 10/06/19 10/07/19 11:59 11:59 11:59 11:59 Intake Total 825 1000 Output Total 1200 Balance -375 1000 Weight 79.1 kg Assessment/Plan (1) Weakness Current Visit: Yes Status: Acute Assessment & Plan: Last Vital Signs Temp 97.0 F 10/07/19 07:34 Pulse 54 L 10/07/19 07:34 Resp 18 10/07/19 07:34 BP 147/81 10/07/19 07:34 Pulse Ox 95 10/07/19 07:34 Allergies No Known Drug Allergies Allergy (Verified 09/29/19 20:01) Active Medications Acetaminophen (Tylenol 325 Mg) 650 mg PO Q4H PRN PRN PRN Reason: PAIN, FEVER, HEADACHE Stop: 10/29/19 21:48 Last Admin: 10/06/19 10:01 Dose: 650 mg Amlodipine Besylate (Norvasc 5 Mg) 5 mg PO QAM [facility] Stop: 10/30/19 09:59 Last Admin: 10/06/19 09:51 Dose: 5 mg Calcium Carbonate (Calcium 500mg W/Vit D Tablet) 1 tab PO BID [facility] Stop: 10/30/19 09:59 Last Admin: 10/06/19 21:06 Dose: 1 tab Clopidogrel Bisulfate (Plavix 75 Mg Tablet) 75 mg PO DAILY [facility] Stop: 10/30/19 09:59 Last Admin: 10/06/19 09:51 Dose: 75 mg Donepezil HCl (Aricept 10 Mg) 10 mg PO DAILY [facility] Stop: 10/30/19 09:59 Last Admin: 10/06/19 09:51 Dose: 10 mg Enoxaparin Sodium (Enoxaparin Sodium) 40 mg SQ DAILY [facility] Stop: 11/01/19 09:59 Last Admin: 10/06/19 09:51 Dose: 40 mg Ceftriaxone Sodium/Dextrose (Rocephin 1 Gm-D5w 50 Ml Bag) 1 g in 50 mls @ 100 mls/hr IV Q24H22 [facility] Stop: 10/30/19 21:59 Last Admin: 10/06/19 21:06 Dose: 100 mls/hr Nystatin (Nystop 30 Gm Cream) 1 gm TOP BID [facility] Stop: 11/01/19 09:59 Last Admin: 10/06/19 21:07 Dose: 1 gm Ondansetron HCl (Zofran 4 Mg/2 Ml Vial) 4 mg IV Q6H PRN PRN PRN Reason: NAUSEA/VOMITING Stop: 10/29/19 21:48 Pantoprazole Sodium (Protonix 40 Mg Iv) 40 mg IV Q24H22 [facility] Stop: 10/30/19 21:59 Last Admin: 10/06/19 21:06 Dose: 40 mg Risperidone (Risperdal 1 Mg) 0.5 mg PO BID [facility] Stop: 10/30/19 09:59 Last Admin: 10/06/19 21:06 Dose: 0.5 mg Sertraline HCl (Zoloft 50 Mg Tablet) 100 mg PO DAILY [facility] Stop: 10/31/19 09:59 Last Admin: 10/06/19 09:51 Dose: 100 mg Tuberculin PPD (Aplisol) 5 unit ID DAILY [facility] Stop: 10/17/19 10:01 Intake & Output 10/06/19 10/07/19 11:59 11:59 Intake Total 825 1000 Output Total 1200 Balance -375 1000 Weight 79.1 kg Code(s): R53.1 - WEAKNESS (2) Coronary artery disease Current Visit: No Status: Chronic Code(s): I25.10 - ATHSCL HEART DISEASE OF [place] CORONARY ARTERY W/O ANG PCTRS (3) Essential hypertension Current Visit: No Status: Chronic Code(s): I10 - ESSENTIAL (PRIMARY) HYPERTENSION
[2019-10-07] MEDS: PLAVIX 75 MG Tablet PO SCH (09:21)
[2019-10-07] MEDS: ENOXAPARIN SODIUM SQ SCH (09:21)
[2019-10-07] MEDS: Aricept 10 MG PO SCH (09:22)
[2019-10-07] MEDS: Calcium 500MG W/Vit D Tablet PO SCH ×2 (09:22→21:06)
[2019-10-07] MEDS: NYSTOP 30 GM CREAM TOP SCH ×2 (09:22→23:31)
[2019-10-07] MEDS: NORVASC 5 MG PO SCH (09:22)
[2019-10-07] MEDS: Risperdal 1 MG PO SCH ×2 (09:22→21:05)
[2019-10-07] MEDS: ZOLOFT 50 MG TABLET PO SCH (09:22)
[2019-10-07 12:33] LABS: ALBUMIN 3.5 g/dL (3.5-5.0); ALKALINE PHOSPHATASE 43 U/L (38-126); ANION GAP 11.8 MEQ/L (5-15); BLOOD UREA NITROGEN 14 mg/dL (7-17); CHLORIDE 104 mmol/L (98-107); Carbon Dioxide 28 mmol/L (22-30); Creatinine 1 0.59 mg/dL (0.52-1.04); Glucose 124 mg/dL (74-106); Hematocrit 37.5 % (35-47); Hemoglobin 11.8 gm/dl (12.0-16.0); Mean Cell Volume 92.8 fl (78-100); Mean Corpuscular Hemoglobin 29.2 pg (26-32); Mean Corpuscular Hgb Concent. 31.5 g/dl (32-36); Platelet Count 196 K/mm3 (150-450); Potassium 3.9 mmol/L (3.5-5.1); Red Blood Count 4.04 M/mm3 (4.1-5.4); SGOT/AST 43 U/L (14-36); SGPT/ALT 13 U/L (0-35); SODIUM 140 mmol/L (137-145); Total Protein 6.9 g/dL (6.3-8.2); White Blood Count 3.8 K/mm3 (4.0-10.5)
--- NOTE | 2019-10-07 19:05 | XRAY ---
Indication: Short of breath. Comparison: October 01, 2019. Portable chest again demonstrates left costophrenic angle blunting unchanged. Remaining heart and lungs unremarkable. No new cardiopulmonary abnormalities. Comment: Preliminary interpretation was made by [facility]. No critical discrepancy.
[2019-10-07] MEDS: PROTONIX 40 MG IV IV SCH (21:06)
[2019-10-07] MEDS: ROCEPHIN 1 Gm-D5w 50 ml Bag** 1 G/50 ML IVPB IV SCH (21:06)
--- NOTE | 2019-10-08 08:35 | PCM.NOTE ---
Date and Time: 10/08/19 0832 Subjective Assessment: patient has no complaints this morning, denies any pain. states she is no longer having any diarrhea. Objective Exam General Appearance: no apparent distress, alert Skin Exam: normal color, warm, dry Respiratory Exam: normal breath sounds, lungs clear, No respiratory distress Cardiovascular Exam: regular rate/rhythm, normal heart sounds Gastrointestinal/Abdomen Exam: soft, No tenderness, No mass OBJECTIVE DATA Vital Signs: Vital Signs - 24 hr Temp Pulse Resp BP Pulse Ox 10/08/19 08:00 96.9 F 54 L 17 132/76 93 L 10/07/19 20:42 97.5 F 55 L 16 124/61 96 10/07/19 20:00 98.3 F 68 18 122/69 97 Pain Assessment - Last Documented Pain Intensity 0 Pain Scale Used [facility] Intake and Output: Intake & Output 10/05/19 10/06/19 10/07/19 10/08/19 11:59 11:59 11:59 11:59 Intake Total 825 1000 460 Output Total 1200 Balance -375 1000 460 Weight 79.1 kg Lab Results: Lab Results-Last 24 Hours 10/07/19 10/07/19 Range/Units 12:10 12:10 WBC 3.8 L (4.0-10.5) K/mm3 RBC 4.04 L (4.1-5.4) M/mm3 Hgb 11.8 L (12.0-16.0) gm/dl Hct 37.5 (35-47) % MCV 92.8 (78-100) fl MCH 29.2 (26-32) pg MCHC 31.5 L (32-36) g/dl RDW 14.0 (11.5-14.0) % Plt Count 196 (150-450) K/mm3 MPV 10.0 (7.5-11.0) fl Sodium 140 (137-145) mmol/L Potassium 3.9 (3.5-5.1) mmol/L Chloride 104 (98-107) mmol/L Carbon Dioxide 28 (22-30) mmol/L Anion Gap 11.8 (5-15) MEQ/L BUN 14 (7-17) mg/dL Creatinine 0.59 (0.52-1.04) mg/dL Estimated GFR > 60.0 ML/MIN Glucose 124 H (74-106) mg/dL Calcium 9.0 (8.4-10.2) mg/dL Total Bilirubin 0.40 (0.2-1.3) mg/dL AST 43 H (14-36) U/L ALT 13 (0-35) U/L Alkaline Phosphatase 43 (38-126) U/L Serum Total Protein 6.9 (6.3-8.2) g/dL Albumin 3.5 (3.5-5.0) g/dL Radiology Exams: Radiology Procedures Category Date Time Status CHEST 1 VIEW (PORTABLE) Stat Exams 10/07/19 11:53 Completed Assessment/Plan (1) Urinary tract infection Current Visit: No Status: Acute Qualifiers: Urinary tract infection type: acute cystitis Hematuria presence: without hematuria Qualified Code(s): N30.00 - Acute cystitis without hematuria Assessment & Plan: admitted 09/28, has completed more than 7 days of rocephin, will d/c at this time Code(s): N39.0 - URINARY TRACT INFECTION, SITE NOT SPECIFIED (2) Norovirus Current Visit: Yes Status: Acute Assessment & Plan: symptoms resolved, plan to ecf when testing is negative. Code(s): A08.11 - ACUTE GASTROENTEROPATHY DUE TO NORWALK AGENT (3) Weakness Current Visit: Yes Status: Acute Code(s): R53.1 - WEAKNESS (4) Altered mental status Current Visit: No Status: Acute Qualifiers: Altered mental status type: delirium Qualified Code(s): R41.0 - Disorientation, unspecified Code(s): R41.82 - ALTERED MENTAL STATUS, UNSPECIFIED (5) Rectovaginal fistula Current Visit: No Status: Acute Assessment & Plan: no intervention planned at this time. Code(s): N82.3 - FISTULA OF VAGINA TO LARGE INTESTINE
[2019-10-08] MEDS: NYSTOP 30 GM CREAM TOP SCH ×2 (09:27→21:10)
[2019-10-08] MEDS: Risperdal 1 MG PO SCH ×2 (09:48→21:09)
[2019-10-08] MEDS: Aricept 10 MG PO SCH (09:49)
[2019-10-08] MEDS: Calcium 500MG W/Vit D Tablet PO SCH ×2 (09:49→21:09)
[2019-10-08] MEDS: PLAVIX 75 MG Tablet PO SCH (09:49)
[2019-10-08] MEDS: ENOXAPARIN SODIUM SQ SCH (09:50)
[2019-10-08] MEDS: NORVASC 5 MG PO SCH (09:50)
[2019-10-08] MEDS: ZOLOFT 50 MG TABLET PO SCH (09:50)
[2019-10-08] MEDS: Protonix 40MG Tablet PO SCH (21:10)
--- NOTE | 2019-10-09 08:59 | PCM.NOTE ---
Date and Time: 10/09/19 0854 Subjective Assessment: She feels "like the dogs" this morning but no specific complaints. She has not had any stools today. - Review of Systems Constitutional: No Fever Abdominal/Gastrointestinal: No Vomiting Objective Exam General Appearance: no apparent distress, alert Neurologic Exam: cooperative, normal mood/affect Skin Exam: normal color, warm, dry, No rash Eye Exam: eyes nml inspection Ears, Nose, Throat Exam: moist mucous membranes Neck Exam: normal inspection Respiratory Exam: normal breath sounds, lungs clear, No crackles/rales, No rhonchi, No wheezing Cardiovascular Exam: regular rate/rhythm, normal heart sounds, No murmur Gastrointestinal/Abdomen Exam: soft, normal bowel sounds, tenderness (LLQ, mild) , No distention, No mass, No guarding, No rebound Extremity Exam: normal inspection, No pedal edema, No swelling OBJECTIVE DATA Vital Signs: Vital Signs - 24 hr Temp Pulse Resp BP Pulse Ox 10/09/19 06:54 98.2 F 52 L 18 132/76 96 10/08/19 20:00 97.9 F 57 L 18 118/54 98 Pain Assessment - Last Documented Pain Intensity 0 Pain Scale Used [facility] Intake and Output: Intake & Output 10/06/19 10/07/19 10/08/19 10/09/19 11:59 11:59 11:59 11:59 Intake Total 825 1000 460 600 Output Total 1200 Balance -375 1000 460 600 Weight 79.1 kg 77.9 kg 79.1 kg Radiology Exams: Radiology Procedures Category Date Time Status CHEST 1 VIEW (PORTABLE) Stat Exams 10/07/19 11:53 Completed Multi-Disciplinary Progress Notes: Multi-Disciplinary Progress Notes 10/08/19 15:27 Pharmacy Note by Will Bunch Protonix changed to oral per IV to PO policy. Initialized on 10/08/19 15:27 - END OF NOTE Assessment/Plan (1) Norovirus Current Visit: Yes Status: Acute Assessment & Plan: Seems to be having decreased stools. Can d/c to ECF when she tests negative. Code(s): A08.11 - ACUTE GASTROENTEROPATHY DUE TO NORWALK AGENT (2) Weakness Current Visit: Yes Status: Acute Code(s): R53.1 - WEAKNESS (3) Coronary artery disease Current Visit: No Status: Chronic Qualifiers: [place] vs. transplanted heart: torres [place]inez heart Associated angina: without angina Code(s): I25.10 - ATHSCL HEART DISEASE OF [place] CORONARY ARTERY W/O ANG PCTRS (4) Dementia Current Visit: No Status: Chronic Qualifiers: Dementia type: unspecified type Dementia behavioral disturbance: without behavioral disturbance Qualified Code(s): F03.90 - Unspecified dementia without behavioral disturbance Code(s): F03.90 - UNSPECIFIED DEMENTIA WITHOUT BEHAVIORAL DISTURBANCE (5) Essential hypertension Current Visit: No Status: Chronic Code(s): I10 - ESSENTIAL (PRIMARY) HYPERTENSION
[2019-10-09] MEDS: PLAVIX 75 MG Tablet PO SCH (09:26)
[2019-10-09] MEDS: NORVASC 5 MG PO SCH (09:26)
[2019-10-09] MEDS: ZOLOFT 50 MG TABLET PO SCH (09:26)
[2019-10-09] MEDS: Calcium 500MG W/Vit D Tablet PO SCH ×2 (09:26→20:52)
[2019-10-09] MEDS: Aricept 10 MG PO SCH (09:26)
[2019-10-09] MEDS: ENOXAPARIN SODIUM SQ SCH (09:27)
[2019-10-09] MEDS: NYSTOP 30 GM CREAM TOP SCH ×2 (09:27→20:56)
[2019-10-09] MEDS: Risperdal 1 MG PO SCH ×2 (09:27→20:52)
[2019-10-09] MEDS: Protonix 40MG Tablet PO SCH (20:52)
[2019-10-10 08:46] VITALS: BP 141/85; PULSE 55; O2SAT 93
[2019-10-10] MEDS: Risperdal 1 MG PO SCH (09:33)
[2019-10-10] MEDS: ZOLOFT 50 MG TABLET PO SCH (09:33)
[2019-10-10] MEDS: PLAVIX 75 MG Tablet PO SCH (09:33)
[2019-10-10] MEDS: Calcium 500MG W/Vit D Tablet PO SCH (09:34)
[2019-10-10] MEDS: NORVASC 5 MG PO SCH (09:34)
[2019-10-10] MEDS: ENOXAPARIN SODIUM SQ SCH (09:34)
[2019-10-10] MEDS: NYSTOP 30 GM CREAM TOP SCH (09:35)
[2019-10-10] MEDS: Aricept 10 MG PO SCH (09:35)
[2019-10-10] MEDS: TYLENOL 325 MG PO PRN (10:53)
[2019-10-10 11:16] LABS: Adenovirus F 40/41 NEGATIVE (NEGATIVE); Astrovirus NEGATIVE (NEGATIVE); C. Difficile Organism NEGATIVE (NEGATIVE); Campylobacter NEGATIVE (NEGATIVE); Cryptosporidium NEGATIVE (NEGATIVE); Cyclospora cayentanensis NEGATIVE (NEGATIVE); Entamoeaba histolytica NEGATIVE (NEGATIVE); Enteroaggregative E.coli NEGATIVE (NEGATIVE); Enteropathogenic E.coli NEGATIVE (NEGATIVE); Enterotoxigenic E.coli NEGATIVE (NEGATIVE); Giardia lamblia NEGATIVE (NEGATIVE); Norovirus GI/GII NEGATIVE (NEGATIVE); Plesiomonas shigelloides NEGATIVE (NEGATIVE); Rotavirus A NEGATIVE (NEGATIVE); Salmonella NEGATIVE (NEGATIVE); Sapovirus NEGATIVE (NEGATIVE); Shiga-like toxin prod.E.coli NEGATIVE (NEGATIVE); Vibrio NEGATIVE (NEGATIVE); Vibrio cholerae NEGATIVE (NEGATIVE); Yersinia enterocolitica NEGATIVE (NEGATIVE)
--- NOTE | 2019-10-12 11:47 | DS ---
DISCHARGE DIAGNOSES: 1) URINARY TRACT INFECTION. 2) NOROVIRUS. 3) RECTOVAGINAL FISTULA. 4) WEAKNESS. 5) ALTERED MENTAL STATUS. HOSPITAL COURSE: This patient is a 78 year-old female who was initially admitted with worsening of confusion. She has some underlying dementia, has in an extended care facility in the past. She was treated with Rocephin for urinary tract infection. She had diarrhea and was discovered to have rectovaginal fistula after admission. She was seen by general surgery who felt as though she was a poor surgical candidate and her family agreed that they did not want any surgical intervention due to her overall poor health. It was felt as though that she would likely have difficulty caring for herself at home. The family was agreeable to [facility] stay and she was released from [facility] on 10/10/2019 to [facility]. Again, she had been fully treated with IV Rocephin and had seven days prior to discharge so no further antibiotics were sent. DISCHARGE MEDICATIONS: Aricept 10 mg daily, Plavix 75 mg daily, amlodipine 5 mg daily, Sertraline 100 mg daily, Risperdal 0.5 mg p.o. b.i.d., calcium with vitamin D twice daily, melatonin/pyridoxine 1 tablet bedtime, Tylenol PRN, Nystatin cream, Protonix 40 mg daily. DISCHARGE FOLLOW UP: She will be followed by Dr. Duncan, Food And Beverage Controller at [facility], upon discharge.
[2019-10-17] MEDS ORDERED: Aplisol ID SCH (10:00)
== END 2019-10-10 16:10 | DRG 690 ==
LOC: MED SURG 16:00
PROVIDERS: ADMIT Family Medicine; ATTEND Family Medicine
DX: N39.0 Urinary tract infection, site not specified (principal); A08.11 Acute gastroenteropathy due to Norwalk agent; N82.3 Fistula of vagina to large intestine; R53.1 Weakness; R41.82 Altered mental status, unspecified; Z79.899 Other long term (current) drug therapy; I10 Essential (primary) hypertension; J44.9 Chronic obstructive pulmonary disease, unspecified; I25.10 Atherosclerotic heart disease of native coronary artery without angina pectoris; F03.90 Unspecified dementia, unspecified severity, without behavioral disturbance, psychotic disturbance, mood disturbance, and anxiety
CPT/HCPCS: 36415; 71045; 80053; 85027; 87507; J0696; J1650; 97110-GP; A9270-GY